=== PATIENT | male | born 1930 | race Hispanic/Latino ===

== ENCOUNTER 2018-01-08 17:54 | Emergency (ER) | payer MEDICARE ==
[2018-01-08] MEDS ORDERED: cloNIDine 0.1 MG TAB ONE (20:11)
== END 2018-01-08 21:06 | disposition home or self-care (01) ==
LOC: SCSER 17:54
DX: I10 Essential (primary) hypertension (principal); J30.9 Allergic rhinitis, unspecified; E11.9 Type 2 diabetes mellitus without complications; Z79.899 Other long term (current) drug therapy
CPT/HCPCS: 99284

== ENCOUNTER 2018-01-09 12:59 | Inpatient (IN) | payer MEDICARE ==
[~2018-01-09 12:59] MED LIST: Iopamidol 370 76% 100 ML VIAL ONE
[2018-01-09 13:39] LABS: PTT 30.2 SEC (22.9-36.1); Prothrombin Time 13.6 SEC (12.0-14.7)
[2018-01-09 13:48] LABS: ALT (SGPT) 14 U/L (8-55); AST (SGOT) 26 U/L (5-34); Albumin 2.5 g/dL (3.4-4.8); Alkaline Phosphatase 95 U/L (40-150); Anion Gap 10 mmol/L (10-20); BUN (Urea Nitrogen) 12 mg/dL (8.4-25.7); Bilirubin, Total 0.4 mg/dL (0.2-1.2); Calc. Creatinine Clearance 0 mL/min (70-130); Calcium 8.3 mg/dL (7.8-10.44); Carbon Dioxide 28 mmol/L (23-31); Chloride 107 mmol/L (98-107); Estimated GFR-MDRD 73; Globulin 3.1 g/dL (2.4-3.5); Glucose 106 mg/dL (83-110); Potassium 3.5 mmol/L (3.5-5.1); Protein, Total 5.6 g/dL (5.8-8.1); Sodium 141 mmol/L (136-145)
[2018-01-09 13:49] LABS: CKMB 1.4 ng/mL (0-6.6); Troponin I 0.012 ng/mL (< 0.028)
[2018-01-09 14:00] LABS: #Basophils 0.1 thou/uL (0.0-0.2); #Eosinphils 0.1 thou/uL (0.0-0.7); #Lymphocytes 1.1 thou/uL (1.20-3.40); #Monocytes 0.5 thou/uL (0.11-0.59); %Basophils 1.5 % (0.0-1.0); %Eosinophils 2.7 % (0.0-10.0); %Lymphocytes 23.3 % (21.0-51.0); %Monocytes 11.3 % (0.0-10.0); %Neutrophils 61.2 % (42.0-75.0); Hemoglobin 11.9 g/dL (14.0-18.0); Hypochromia SLIGHT = 6-15 cells (100X) (0-5/hpf); MDiff Complete? YES; Mean Corpuscular HGB CONC 32.7 g/dL (32.0-36.0); Mean Corpuscular Hemoglobin 32.2 pg (27.0-31.0); Mean Corpuscular Volume 98.4 fL (78.0-98.0); Mean Platelet Volume 9.5 fL (7.4-10.4); PLT Morphology Comment Appears Adequate; Platelet Count 110 thou/uL (130-400); RBC Distribution Width 13.2 % (11.5-14.5); Red Blood Cell (RBC) Count 3.69 mill/uL (4.70-6.10); White Blood Cell (WBC) Count 4.8 thou/uL (4.8-10.8)
[2018-01-09] MEDS ORDERED: Enalaprilat Dihydrate 1.25 MG/ML VIAL ONE (14:03)
--- NOTE | 2018-01-09 14:19 | CT ---
HEAD CT NONCONTRAST: Date: 01/09/18 CLINICAL HISTORY: Emergency exam. History of new onset neurologic deficits, right-sided facial droop and weakness. FINDINGS: There is a focus of hyperdensity centered at the left lentiform nucleus/posterior limb left internal capsule. A focus of susceptibility was present in this region on 08/03/15 exam, which may therefore r elate to a chronic area of parenchymal calcific density possibly related to remote hemorrhagic insult . However, the possibility of a superimposed acute parenchymal hemorrhage is not excluded on the basi s of this exam and could relate to a newly developed hypertensive hemorrhage. There is no significant midline shift. There is evidence of mild chronic ischemic disease. IMPRESSION: Focal hyperdensity of left lentiform nucleus approximating region of hemosiderin deposition/higgins art ifact on brain MRI 08/03/15, as discussed above. However, the possibility of a newly developed superi mposed nidus of parenchymal hemorrhage cannot be excluded on the basis of this exam. Continued imagin g follow-up should be obtained. These findings were discussed via telephone with ER physician, Quincy Ragland, at 1325 hours on . CODE CR.
--- NOTE | 2018-01-09 14:46 | CT ---
CTA HEAD WITH CONTRAST WITH 3D VOLUME RENDERING: Date: 01/09/18 INDICATION: New onset stroke symptoms, weakness. FINDINGS: The previously mentioned hyperdensity at the left basal ganglia is present. There is calcification of each visualized distal vertebral artery with a slight dominance of the left vertebral artery. Basila r artery is patent. 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 Bilateral MCA and BIENVENIDO are patent. No discrete intracranial aneurysm. The imaged distal, intracranial ICA demonstrate mild to moderate c alcification bilaterally, and there is calcification within the visualized right common carotid arter y. IMPRESSION: 1. Scattered vascular calcification without evidence of focal occlusion of the [place]. 2. Redemonstration of hyperdensity centered at the left lentiform nucleus/posterior limb left civil engineering intern al capsule as described on concurrent head CT, which was discussed with Dr. Ragland at the time of int erpretation. Notification of findings placed at 1400 hours on 01/09/18. CODE CR.
[2018-01-09 16:10] LABS: Bacteria/HPF Rare-Few HPF (None Seen); Bilirubin Negative (Negative); Blood, Urine Moderate (Negative); Clarity Clear (Clear); Glucose, Urine (Dipstick) Negative (Negative); Leukocyte Negative (Negative); Nitrite Negative (Negative); Protein, Urine (Dipstick) > or equal to 300 mg/dL (Neg-Trace); Squamous Epithelial None Seen HPF (0-3); Urobilinogen 0.2 mg/dL (0.2-1.0); WBC/HPF None Seen HPF (0-3)
[2018-01-09 17:02] VITALS: BMI 29.0
[2018-01-09] MEDS ORDERED: Acetaminophen 325 MG TAB PO PRN (17:19)
[2018-01-09] MEDS ORDERED: Ondansetron HCl/PF 4 MG/2 ML Vial IVP PRN (17:19)
[2018-01-09] MEDS ORDERED: hydrALAZINE 20 MG/ML VIAL SLOW IVP PRN (17:21)
[2018-01-09] MEDS ORDERED: hydrALAZINE 20 MG/ML VIAL SLOW IVP SCH (17:30)
[2018-01-09] MEDS: Labetalol HCl 100 MG/20 ML VIAL SLOW IVP PRN (18:37)
--- NOTE | 2018-01-09 21:01 | PDOC.FPRHP ---
- History of Present Illness Chief Complaint: slurred speech, right sided weakness History of Present Illness: 87 yo M with PMH of hemorrhagic CVA x4-5 presents as transfer from ED due to concern for hemorrhagic CVA. At 1230 pm family noticed acute onset of slurred speech and right facial droop in addition to right upper and lower extremity weakness. Patient denied PEREIRA, vision changes, LOC, falls at that time. At ED patient had elevated BPs in the 200s. Patient was unable to ambulate due to lower leg weakness. CT showed concern for possible hemorrhagic CVA. Pt. also complains of cough and sore throat for past 4 days. Cough productive of clear sputum, denies fevers and chills or dyspnea. Was given augmentin which he did not complete due to it causing diarrhea. ED Course: vasotec x1, hydralazine x1 - Allergies/Adverse Reactions Allergies Allergy/AdvReac Type Severity Reaction Status Date / Time No Known Allergies Allergy Verified 02/22/13 15:27 - Home Medications Medication Instructions Recorded Confirmed Type Lisinopril [Prinivil] 10 mg PO DAILY 02/22/13 01/09/18 History Amoxicillin/Potassium Clav 1 tab PO Q12HR 01/09/18 01/09/18 History Benzonatate [Tessalon] 200 mg PO TID PRN 01/09/18 01/09/18 History Ipratropium 0.06% Nasal Inhale 2 sprays EA NARE TID 01/09/18 01/09/18 History [Atrovent 0.06% Nasal [place]] Pravastatin Sodium 80 mg PO HS 01/09/18 01/09/18 History - History PMHx: HTN, HLD, possible dementia PSHx: Denies FHx:HTN, Cancer Social: Former smoker (has not smoked for over 15 years), denies etoh and drug use - Review of Systems General: denies: fever/chills Eyes: denies: vision changes ENT: reports: nasal congestion Respiratory: reports: cough, congestion. denies: shortness of breath Cardiovascular: denies: chest pain, palpitation, orthopnea Gastrointestinal: denies: nausea, vomiting, diarrhea, constipation, abdominal pain Genitourinary: denies: dysuria Skin: denies: rashes Musculoskeletal: reports: arthritis/arthralgias. denies: pain Neurological: reports: weakness. denies: syncope, seizure - Vital signs BP: [193/78] HR: [83] RR: [19] Tmax: [97.8] Pox: [95]% on [RA] Wt: [81] - Physical Exam Constitutional: NAD, awake, alert and oriented -Constitutional: mild dysarthria (different from baseline per family) HEENT: normocephalic and atraumatic, PERRLA, EOMI, conjunctiva clear Neck: supple, FROM Heart: RRR -Lungs: lower lobe rhonci, mild wheezing Abdomen: soft, no masses/distention Musculoskeletal: ROM grossly normal Neurological: no focal deficit, CN II-XII intact -Neurological: II-XII: +right lower facial droop (mild), intact sensation UE: 5/5 motor and sensation intact LE: 5/5 motor and sensation intact gait: shuffling, broad, unsteady Skin: no rash/lesions, capillary refill <2 seconds Heme/Lymphatic: no unusual bruising or bleeding Psychiatric: normal mood and affect, other -Psychiatric: comprehensible speech, but tangential repetitive speech (baseline per family). mild dysarthria FMR H&P: Results - Labs Result Diagrams: 01/10/18 03:54 01/10/18 03:54 Lab results: WBC 4.8 thou/uL (4.8-10.8) 01/09/18 13:10 Hgb 11.9 g/dL (14.0-18.0) L 01/09/18 13:10 Hct 36.3 % (42.0-52.0) L 01/09/18 13:10 MCV 98.4 fL (78.0-98.0) H 01/09/18 13:10 Plt Count 110 thou/uL (130-400) L 01/09/18 13:10 Neutrophils % 61.2 % (42.0-75.0) 01/09/18 13:10 Sodium 141 mmol/L (136-145) 01/09/18 13:10 Potassium 3.5 mmol/L (3.5-5.1) 01/09/18 13:10 Chloride 107 mmol/L (98-107) 01/09/18 13:10 Carbon Dioxide 28 mmol/L (23-31) 01/09/18 13:10 BUN 12 mg/dL (8.4-25.7) 01/09/18 13:10 Creatinine 0.98 mg/dL (0.7-1.3) 01/09/18 13:10 Glucose 106 mg/dL (83-110) 01/09/18 13:10 Calcium 8.3 mg/dL (7.8-10.44) 01/09/18 13:10 Total Bilirubin 0.4 mg/dL (0.2-1.2) 01/09/18 13:10 AST 26 U/L (5-34) 01/09/18 13:10 ALT 14 U/L (8-55) 01/09/18 13:10 Alkaline Phosphatase 95 U/L (40-150) 01/09/18 13:10 CK-MB (CK-2) 1.4 ng/mL (0-6.6) 01/09/18 13:10 Serum Total Protein 5.6 g/dL (5.8-8.1) L 01/09/18 13:10 Albumin 2.5 g/dL (3.4-4.8) L 01/09/18 13:10 Urine Ketones Negative mg/dL (Negative) 01/09/18 15:40 Urine Blood Moderate (Negative) H 01/09/18 15:40 Urine Nitrite Negative (Negative) 01/09/18 15:40 Ur Leukocyte Esterase Negative (Negative) 01/09/18 15:40 Urine RBC 4-6 HPF (0-3) 01/09/18 15:40 Urine WBC None Seen HPF (0-3) 01/09/18 15:40 Ur Squamous Epith Cells None Seen HPF (0-3) 01/09/18 15:40 Urine Bacteria Rare-Few HPF (None Seen) 01/09/18 15:40 FMR H&P: A/P - Problem List (1) Ischemic cerebrovascular accident (CVA) Current Visit: Yes Status: Acute Code(s): I63.9 - CEREBRAL INFARCTION, UNSPECIFIED (2) Cough productive of clear sputum Current Visit: Yes Status: Acute Code(s): R05 - COUGH (3) Hypertension Current Visit: Yes Status: Acute Code(s): I10 - ESSENTIAL (PRIMARY) HYPERTENSION (4) Hyperlipidemia Current Visit: Yes Status: Acute Code(s): E78.5 - HYPERLIPIDEMIA, UNSPECIFIED - Plan 87 yo M with PMH hemorrhagic CVAs admitted for ischemic CVA, stroke r/o 1. Ischemic CVA, stroke work up - ED CT scan: questionable ICH on read. Touched base with neurosurgeon who is not concerned with ICH -Will allow for permissive HTN with PRN labetalol & hydralazine for >220/>110 -Stroke work up: echo, FLP -MRI brain in AM -Neuro consult -PT/OT/ST -NPO for now 2. Productive cough -Lung with b/l lower lobe rhonci -non-hypoxic on RA, no white count, afebrile -Will order CXR to evaluate for possible PNA or other lower respiratory processes 3. HTN -see problem #1 -continue home lisinopril] 4. HLD -continue home statin 5. Prior hx of DM2 -per patient's son, currently no longer diabetic after weight loss -will recheck with A1c to risk stratify 6. Macrocytic anemia -B12, B9 7. Proteinuria; hematuria -could be 2/2 to infection or chronic diabetic nephropathy -with hematuria consider nephritic syndrome Discussed with Dr. Peña & Dr. Larose who agree with above plan FMR H&P: Upper Level - Pertinent history 87M p/w right sided weakness, right sided facial droop, slurred speech, and ataxic gait since noon today. He has been evaluated several times in the ED over the last week for uncontrolled hypertension. Family are present in the exam room and give the majority of the history. History of 4 prior CVAs with two being hemorrhagic. ASA held in ED due to hx of ICH and equivocal CT on presentation. Patient is also not a candidate for tPA due to this history. ED physician spoke with Neurosurgery who felt this was likely thromboembolic and not hemorrhagic in nature. PMH: hypertension PSH: none Allergies: NKDA Meds: lisinopril ED: Vasotec 1.25 mg - Pertinent findings Vitals: 97.8F 83 bpm 19 breaths/m 95% on RA 193/78 mmHg PE: Gen: A&Ox3 HEENT: NC/AT CV: RRR; no m/r/g Pulm: CTA-B Abd: soft; non tender to palpation; no guarding Neuro: CN II-XII intact; ataxic gait Extremities: muscle strength 5/5 on left upper and lower extremities; 4/5 on right upper and lower extremities CBC, CMP, CE, and coags essentially normal UA shows moderate blood and proteinuria CT head: shows old remnant of hemorrhagic infarct; cannot exclude small hemorrhage - Plan Date/Time: 01/09/182100 A/P: 1. CVA with right sided deficit: admit stroke/Obs with NIH scale per protocol. MRI and TTE pending. Patient is already improving- able to ambulate this evening. Permissive HTN to 220/110 mmHg with PRN Hydralazine and Labetalol. Neurology consult with PT/OT/Speech. Dysphagia screen prior to eating. 2. HTN emergency: patient only on monotherapy at home. Will continue his Lisinopril and add hydralazine and labetalol PRN for BP above 220/110 mmHg. I, Jamie Larose, have evaluated this patient and agree with findings/plan as outlined by recording studio intern resident. Pertinent changes/additions are listed here. Attending Addendum - Attending Addendum Date/Time: 01/10/18 [id number] I personally evaluated the patient and discussed the management with Dr. Larose. I agree with the History, Examination, Assessment and Plan documented above with any addition or exceptions noted below.
[2018-01-09] MEDS: Pravastatin Sodium 40 MG TAB PO SCH (21:29)
[2018-01-09] MEDS: Ipratropium Bromide 0.06% Nasal Inhaler 15ml EA NARE SCH (21:41)
[2018-01-09] MEDS ORDERED: Aspirin 325 MG TAB PO SCH (22:00)
--- NOTE | 2018-01-09 22:28 | RAD ---
PORTABLE AP CHEST X-RAY 01/09/18 HISTORY: Pneumonia. COMPARISON: 01/05/18. FINDINGS: This exam is obtained with the patient in kyphotic position and shallow depth of inspiration. Broncho vascular markings are accentuated. The cardiac silhouette is mostly obscured. No consolidation or ple ural fluid is seen. vascular calcifications seen in the thoracic aorta. IMPRESSION: Limited exam, but no acute cardiopulmonary process is identified. POS: ALBERT
[2018-01-09] MEDS: Benzonatate 100 MG CAP PO PRN (23:11)
[2018-01-10 04:43] LABS: #Basophils 0.1 thou/uL (0.0-0.2); #Eosinphils 0.1 thou/uL (0.0-0.7); #Lymphocytes 1.1 thou/uL (1.20-3.40); #Monocytes 0.4 thou/uL (0.11-0.59); #Neutrophils 2.2 thou/uL (1.40-6.50); %Basophils 1.5 % (0.0-1.0); %Eosinophils 3.6 % (0.0-10.0); %Lymphocytes 28.7 % (21.0-51.0); %Monocytes 10.2 % (0.0-10.0); Hemoglobin 11.2 g/dL (14.0-18.0); Mean Corpuscular HGB CONC 31.9 g/dL (32.0-36.0); Mean Corpuscular Hemoglobin 32.5 pg (27.0-31.0); Mean Platelet Volume 8.6 fL (7.4-10.4); Platelet Count 147 thou/uL (130-400); RBC Distribution Width 13.3 % (11.5-14.5); Red Blood Cell (RBC) Count 3.45 mill/uL (4.70-6.10)
[2018-01-10 04:52] LABS: Hemoglobin A1c 5.3 % (4.0-6.0)
[2018-01-10 05:12] LABS: Anion Gap 7 mmol/L (10-20); BUN (Urea Nitrogen) 13 mg/dL (8.4-25.7); Calc. Creatinine Clearance 66 mL/min (70-130); Calcium 7.9 mg/dL (7.8-10.44); Carbon Dioxide 25 mmol/L (23-31); Cardiac Risk 4.7 (Less than 4.5); Chloride 109 mmol/L (98-107); Cholesterol 166 mg/dl (< 200 Desired); Estimated GFR-MDRD 77; Glucose 97 mg/dL (83-110); HDL Cholesterol 35 mg/dL (>60 Neg Risk); LDL Cholesterol, Calculated 112 mg/dL; Potassium 3.2 mmol/L (3.5-5.1); Sodium 138 mmol/L (136-145); Triglycerides 96 mg/dL (Less than 150)
[2018-01-10 05:28] LABS: Folate (Folic Acid) 9.5 ng/mL (7.0-31.4)
[2018-01-10] MEDS: Lisinopril 10 MG TAB PO SCH (08:32)
[2018-01-10] MEDS ORDERED: Aspirin 325 MG TAB PO SCH (09:00)
--- NOTE | 2018-01-10 09:10 | PDOC.FM ---
- Subjective Subjective: NAEO. Patient states his symptoms have markedly improved since admission. Says gait is better and speech is better too. Still slightly difficult to understand though. No obvious facial droop. Endorses a persistent cough and sore throat as well as nasal congestion. Denies any chest pain, headache, or blurry vision. - Objective Vital Signs & Weight: Vital Signs (12 hours) Temp Pulse Resp BP BP Pulse Ox 01/10/18 08:32 204/84 H 01/10/18 08:00 97.3 F L 78 20 204/84 H 92 L 01/10/18 04:00 97.9 F 73 19 174/79 H 93 L 01/10/18 00:00 98.0 F 77 19 182/78 H 92 L Weight Weight 81.76 kg I&O: 01/09/18 01/10/18 01/11/18 06:59 06:59 06:59 Intake Total 500 Balance 500 Result Diagrams: 01/10/18 03:54 01/10/18 03:54 <Mariela Garcia - Last Filed: 01/10/18 09:49> - Objective Vital Signs & Weight: Vital Signs (12 hours) Temp Pulse Resp BP BP Pulse Ox 01/10/18 10:48 79 233/96 H 01/10/18 10:35 79 233/96 H 01/10/18 10:21 204/84 H 01/10/18 08:32 204/84 H 01/10/18 08:00 97.3 F L 78 20 204/84 H 92 L 01/10/18 04:00 97.9 F 73 19 174/79 H 93 L 01/10/18 00:00 98.0 F 77 19 182/78 H 92 L Weight Weight 81.76 kg I&O: 01/09/18 01/10/18 01/11/18 06:59 06:59 06:59 Intake Total 500 Balance 500 Result Diagrams: 01/10/18 03:54 01/10/18 03:54 <Prosper Bunch - Last Filed: 01/10/18 11:46> Phys Exam - Physical Examination Constitutional: NAD HEENT: moist MMs, oral pharynx no lesions Neck: supple, full ROM Respiratory: no wheezing, no rales, no rhonchi Cardiovascular: RRR, no significant murmur Gastrointestinal: positive bowel sounds Musculoskeletal: no edema Neurological: normal sensation, moves all 4 limbs Slightly aphasic but unaware of baseline speech LUE slightly weaker compared to right w/ boss miner strength Psychiatric: normal affect, A&O x 3 Skin: no rash, normal turgor, cap refill <2 seconds <Mariela Garcia - Last Filed: 01/10/18 09:49> Dx/Plan (1) Cough productive of clear sputum Code(s): R05 - COUGH Status: Acute (2) Hyperlipidemia Code(s): E78.5 - HYPERLIPIDEMIA, UNSPECIFIED Status: Acute (3) Hypertension Code(s): I10 - ESSENTIAL (PRIMARY) HYPERTENSION Status: Acute (4) Ischemic cerebrovascular accident (CVA) Code(s): I63.9 - CEREBRAL INFARCTION, UNSPECIFIED Status: Acute - Plan Plan: 87YOM with a PMH sigificant for multiple hemorrhagic CVAs admitted for concern for an ischemic CVA w/ right-sided facial droop and weakness. Suspected Ischemic CVA vs. TIA - Per neurosurgery no concern for ICH, said sxs likely ischemic in etiology. - Will allow for permissive HTN with PRN labetalol & hydralazine for >220/>110. - Echo & MRI brain pending for today. - FLP--> total cholesterol <200 but LDL 112. - Neurology has been consulted. - PT/OT/ST consulted as well. - NPO for now pending clearance from speech therapy. Productive cough - Satting well on RA, no white count, afebrile. - CXR showed some congestion but no focal consolidation suggestive of PNA. - Patient does endorse URI symptoms like sore throat and nasal congestion. - Will order tessalon pearls for cough and saline nasal spray for congestion. Want to avoid decongestants due to HTN. HTN - Will manage HTN as described above for the next few hours but will initiate better BP control with an additional antihypertensive agent. - Will continue home lisinopril. HLD -Aware, will continue home statin. Prior hx of DM2 - Per patient's son, patient is no longer diabetic 2/2 weight loss. - A1c 5.3 which is WNLs. No need to initiate antihyperglycemic therapy. Macrocytic anemia - B12 & folate WNLs. - Can be worked up further on outpatient basis. Proteinuria; hematuria - BUN/Cr WNLs but eGFR 68%. - Could be result of previously uncontrolled diabetic nephropathy. Could obtain a urine microalbumin:Cr ratio to assess for this. - Will likely need further workup as an outpatient with PCP. <Mariela Garcia - Last Filed: 01/10/18 09:49> Attending Addendum - Attending Addendum Date/Time: 01/10/18 0963 I personally evaluated the patient and discussed the management with Dr. Garcia. I agree with the History, Examination, Assessment and Plan documented above with any addition or exceptions noted below. Patient with history of recurrent hemorrhagic CVA here for new abrupt neurological deficit thought due to ischemic CVA. He is undergoing MRI today. BP highly elevated, and we are now out of the permissive HTN range. Will begin anti-HTN therapy and work to decrease BP to safe range. Consult Neuro and therapy services. NSGY spoken to by MAGDALENA who felt this was not recurrent hemorrhage. Further clarify with MRI today. Currently on ASA but will withhold adding Plavix until discussion with neurology due to history of ICH. <Prosper Bunch - Last Filed: 01/10/18 11:46>
[2018-01-10] MEDS: Labetalol HCl 100 MG/20 ML VIAL SLOW IVP PRN (10:21)
[2018-01-10] MEDS: Ipratropium Bromide 0.06% Nasal Inhaler 15ml EA NARE SCH ×3 (10:31→21:23)
[2018-01-10] MEDS: Benzonatate 100 MG CAP PO PRN ×2 (10:38→19:39)
[2018-01-10] MEDS ORDERED: NIFEdipine XL 60 MG TAB PO SCH (10:45)
[2018-01-10] MEDS ORDERED: Labetalol HCl 100 MG/20 ML VIAL SLOW IVP PRN (12:15)
[2018-01-10] MEDS ORDERED: hydrALAZINE 20 MG/ML VIAL SLOW IVP PRN (12:15)
--- NOTE | 2018-01-10 12:18 | PDOC.EVN ---
Event Note - Event Note Event Note: Discussed case with Sean who has spoken with Dr. Lebron. Per Dr. Lebron, preliminary MRI read suggests acute intracerebral hemorrhage. Recommended keeping BPs <180. Parameters changed on antihypertensives to be given for SBP> 180. Nifedipine has been added. Will continue to monitor.
--- NOTE | 2018-01-10 13:43 | MRI ---
NONCONTRAST ENHANCED MRI BRAIN: 01/10/2018 COMPARISON: Previous MRI brain from 08/03/[address] brain from 01/09/2018. FINDINGS: Multiplanar, multisequence, noncontrast enhanced MR images of the brain demonstrate an increasing are a of hemorrhage in the left periventricular white matter, extending into the left posterior aspect of the basal ganglion and the lateral aspect of the left thalamus. These areas have increased in size. An area of abnormal density, seen on CT, represents acute blood. This area along the posterior lef t basal ganglion region has increased in size. Previously this area represented a small subcentimete r area of old hemosiderin and hemorrhage. There is now increased acute hemorrhage with enlargement o f this area of signal abnormality, now measuring approximately 6 x 8.6 mm. Additional areas of hemor rhage have also developed in the right thalamus, which is 3 to 4 mm in diameter. In addition, a righ t paracentral pontine area of hemorrhage is also present, that was not seen on the patient's previous MRI, from July 2015. IMPRESSION: 1. Small acute left posterior basal ganglia and lateral thalamic area of acute hemorrhage. 2. There has been interval development of additional areas of hemorrhage in the right thalamus and i n the right paracentral pontomedullary junction. 3. No evidence of areas of diffusion restriction seen to suggest acute strokes. POS: MARY BETH
[2018-01-10] MEDS: Pravastatin Sodium 40 MG TAB PO SCH (21:22)
[2018-01-11 05:11] LABS: #Basophils 0.1 thou/uL (0.0-0.2); #Eosinphils 0.2 thou/uL (0.0-0.7); #Lymphocytes 1.1 thou/uL (1.20-3.40); #Monocytes 0.6 thou/uL (0.11-0.59); #Neutrophils 3.7 thou/uL (1.40-6.50); %Eosinophils 3.5 % (0.0-10.0); %Lymphocytes 19.6 % (21.0-51.0); %Monocytes 9.9 % (0.0-10.0); %Neutrophils 66.1 % (42.0-75.0); Hemoglobin 11.5 g/dL (14.0-18.0); Mean Corpuscular HGB CONC 31.8 g/dL (32.0-36.0); Mean Corpuscular Hemoglobin 32.3 pg (27.0-31.0); Mean Platelet Volume 8.4 fL (7.4-10.4); Platelet Count 160 thou/uL (130-400); RBC Distribution Width 13.2 % (11.5-14.5); Red Blood Cell (RBC) Count 3.56 mill/uL (4.70-6.10); White Blood Cell (WBC) Count 5.6 thou/uL (4.8-10.8)
[2018-01-11 05:32] LABS: Anion Gap 8 mmol/L (10-20); BUN (Urea Nitrogen) 15 mg/dL (8.4-25.7); Calc. Creatinine Clearance 65 mL/min (70-130); Calcium 8.1 mg/dL (7.8-10.44); Carbon Dioxide 26 mmol/L (23-31); Chloride 109 mmol/L (98-107); Estimated GFR-MDRD 76; Glucose 109 mg/dL (83-110); Potassium 3.2 mmol/L (3.5-5.1); Sodium 140 mmol/L (136-145)
--- NOTE | 2018-01-11 05:58 | PDOC.FM ---
- Subjective Subjective: NAEO. Patient states he does not feel well today. Says he did not sleep well as he was up coughing all night. Denies any fever/chills or facial pain and says cough is productive of clear sputum occasionally. Also endorses a sore throat and congestion. Says speech and gait are still improved. Denies any chest pain, SOB, or headache. - Objective MAR Reviewed: Yes Vital Signs & Weight: Vital Signs (12 hours) Temp Pulse Resp BP Pulse Ox 01/11/18 04:00 98.0 F 79 20 116/60 94 L 01/11/18 00:00 98.9 F 82 16 153/68 H 92 L 01/10/18 20:00 98.9 F 75 20 168/70 H 94 L Weight Weight 81.76 kg I&O: 01/09/18 01/10/18 01/11/18 06:59 06:59 06:59 Intake Total 500 Balance 500 Result Diagrams: 01/11/18 04:24 01/11/18 04:24 Phys Exam - Physical Examination Constitutional: NAD HEENT: moist MMs, sclera anicteric Neck: supple, full ROM Respiratory: no rales, no rhonchi wheezing in upper airway on exam Cardiovascular: RRR, no significant murmur Gastrointestinal: no distention, positive bowel sounds Musculoskeletal: no edema Neurological: non-focal, normal sensation, moves all 4 limbs dysarthria still present Psychiatric: normal affect, A&O x 3 Skin: no rash, normal turgor, cap refill <2 seconds Dx/Plan (1) Cough productive of clear sputum Code(s): R05 - COUGH Status: Acute (2) Hyperlipidemia Code(s): E78.5 - HYPERLIPIDEMIA, UNSPECIFIED Status: Acute (3) Hypertension Code(s): I10 - ESSENTIAL (PRIMARY) HYPERTENSION Status: Acute (4) Ischemic cerebrovascular accident (CVA) Code(s): I63.9 - CEREBRAL INFARCTION, UNSPECIFIED Status: Acute - Plan Plan: 87YOM with a PMH significant for multiple hemorrhagic CVAs admitted w/ a CC of right-sided facial droop and weakness who has found to have suffered another hemorrhagic CVA. Hemorrhagic CVA - Acute hemorrhagic CVA in posterior basal ganglia and lateral thalamic area confirmed via MRI yesterday - Will continue PRN labetalol & hydralazine as well as home lisinopril and nifedipine at 60mg QD to keep patient's SBP <180 per neurology recs. - Will continue ASA and statin therapy. - Echo pending. - FLP--> total cholesterol <200 but LDL 112. - Neurology on board, appreciate recs. - PT/OT/ST on board as well. - PT eval yesterday recommended home w/ HH or rehab with PT 1-2hours M- and Monday or Monday. Patient would most likely benefit greatest from rehab. Will order rehab screen today to eval if patient is willing to or qualifies for inpatient rehab for PT. - Cleared by speech to eat yesterday. HTN - Will manage HTN as described above per neuro recs. - Will continue current BP regimen for now as patient did not require any PRNs after adding nifedipine yesterday. Hypokalemia - K 3.2 this AM. - Will replace w/ 40mEq PO and recheck tomorrow. Productive cough - Satting well on RA, no white count, afebrile. - CXR showed some congestion but no focal consolidation suggestive of PNA. - Patient does endorse URI symptoms like sore throat and nasal congestion. - Will continue tessalon pearls and add mucinex BID for cough/congestion and add afrin for congestion. HLD - Aware, will continue home statin. Prior hx of DM2 - Per patient's son, patient is no longer diabetic 2/2 weight loss. - A1c 5.3 which is WNLs. No need to initiate antihyperglycemic therapy. Macrocytic anemia - B12 & folate WNLs. - Can be worked up further on outpatient basis. Proteinuria; hematuria - BUN/Cr WNLs but eGFR 68%. - Could be result of previously uncontrolled diabetic nephropathy. Could obtain a urine microalbumin:Cr ratio to assess for this. - Will likely need further workup as an outpatient with PCP.
[2018-01-11] MEDS: Lisinopril 10 MG TAB PO SCH (08:01)
[2018-01-11] MEDS: Ipratropium Bromide 0.06% Nasal Inhaler 15ml EA NARE SCH ×2 (08:01→15:27)
[2018-01-11] MEDS: Benzonatate 100 MG CAP PO PRN (08:07)
[2018-01-11] MEDS ORDERED: NIFEdipine XL 60 MG TAB PO SCH ×2 (09:00→10:34)
[2018-01-11] MEDS ORDERED: guaiFENesin/DM ER PO SCH (09:00)
--- NOTE | 2018-01-11 11:36 | PDOC.EVN ---
Attending Addendum - Attending Addendum Date/Time: 01/11/18 4077 I personally evaluated the patient and discussed the management with Dr. Garcia. I agree with the History, Examination, Assessment and Plan documented in her progress note with any addition or exceptions noted below. Patient doing well today. Awaiting neuro consult. BP much improved on Procardia and will continue that regimen. Currently on ASA 81mg. Dispo planning in progress for possible SNF versus home with therapy services. Nearing medically stable for discharge.
[2018-01-11] MEDS ORDERED: Potassium Chloride 20 MEQ TAB PO SCH (12:00)
[2018-01-11 15:52] VITALS: TEMP 98.2
[2018-01-11 15:55] VITALS: BP 129/59
--- NOTE | 2018-01-11 23:26 | CON ---
DATE OF CONSULTATION: 01/11/2018 IMPRESSION: 1. Hemorrhagic stroke and left mid parietal region resulting in transient right-sided weakness. 2. History of 4 prior strokes, two of which may have been hemorrhagic. 3. Hypertension. PLAN: 1. Blood pressure management. 2. No antiplatelet therapy given the history. Mr. Tijerina is an 87-year-old man who actually is still working. 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 He apparently was in the bath room and developed slurred speech and right-sided weakness. He was brought into the emergency room f or evaluation. CT scan showed evidence of small intracerebral hemorrhage in the left mid parietal re gion and basal ganglia area. His right-sided weakness has improved quite a bit. His slurred speech has has not improved quite as much. He did pass a swallowing study. His blood pressures have been q uite labile. PAST MEDICAL HISTORY: As listed above. ALLERGIES: None reported. SOCIAL HISTORY: No tobacco use. FAMILY HISTORY: Noncontributory. REVIEW OF SYSTEMS: No complaint of headache, nausea, vomiting, vertigo, chest pain, shortness of felipe ath. PHYSICAL EXAMINATION: GENERAL: He is a well-nourished elderly gentleman in no acute distress. VITAL SIGNS: Reviewed. HEENT: Pupils equal and reactive. Conjunctivae clear. Oropharynx clear. EXTREMITIES: No cyanosis, clubbing or edema. NEUROLOGIC: He was alert and cooperative. His speech was fluent but dysarthric. Cranial nerve exam showed flattening of the right nasal labial fold. Motor exam showed symmetric strength without fix or drift. He can walk independently. He has equal sensation. Plantar responses were mute. No abno rmal movements were seen. SUMMARY: Elderly gentleman with recurrent hemorrhagic stroke. His blood pressure appears to be the major issue in play. I would not suggest antiplatelet therapy given his past history of hemorrhages. Blood pressure management would appear to be the only option we have at this point.
--- NOTE | 2018-01-13 00:31 | DIS ---
DATE OF ADMISSION: 01/09/2018 DATE OF DISCHARGE: 01/11/2018 RESIDENT: Mariela Garcia M.D. ADMITTING ATTENDING: Dr. Rhys Fong. DISCHARGE ATTENDING: Dr. Prosper Bunch. DISCHARGE ATTENDING: Prosper Bunch. CONSULTATIONS: Neurology, Dr. Ayad Lebron. PROCEDURES: 1. Brain CT significant for focal hyperdensity of the left lentiform nucleus, approximating region o f hemosiderin deposition, having more effect on brain MRI on 08/03/2015; however, the possibility of a newly developed superimposed hemorrhage cannot be excluded on the basis of this exam. 2. CT [place] with and without contrast significant for scattered vascular calcification wi thout evidence of focal occlusion of the [place] and redemonstration of hyperdensity centere d on the left lentiform nucleus/posterior with internal capsule as described on current head CT . 3. Chest x-ray which shows no acute cardiopulmonary process. 4. Brain MRI significant for a small acute left posterior basal ganglia on lateral thalamic area of acute hemorrhage. PRIMARY DIAGNOSES: 1. Hemorrhagic cerebrovascular accident. 2. Cough productive of clear sputum. SECONDARY DIAGNOSES: 1. Hypertension. 2. Hyperlipidemia. 3. Dementia. DISCHARGE MEDICATIONS: 1. Acetaminophen 650 mg p.o. q.4 hours p.r.n. for pain. 2. Tessalon Perles 200 mg p.o. t.i.d. for cough. 3. Mucinex DM 600 mg/30 mg 2 tabs p.o. q.12 h. 4. Lisinopril 10 mg p.o. daily. 5. Nifedipine 60 mg p.o. daily. 6. Pravastatin 80 mg p.o. at bedtime. DISCONTINUED MEDICATIONS: None. HOSPITAL COURSE: The patient is an 87-year-old gentleman with a past medical history signif icant for multiple hemorrhagic CVAs, who is transferred from an outside Emergency Department due to c oncern for a possible recurrent hemorrhagic CVA shown on head CT. At approximately 12:30 p.m., famil y reported that the patient had sudden onset of slurred speech with associated right facial droop as well as right upper and lower extremity weakness. He therefore presented to the [facility] Department for medical evaluation and on presentation had an elevated systolic blood pressure a s high as the 200s. He was subsequently transferred to [facility] where he cont inued to be extremely hypertensive with blood pressures ranging anywhere from 187-213 systolic in the emergency department. However, all other vitals were noted to be within normal limits. Initial blo od work was remarkable only for macrocytic anemia. The patient did have a CTA of the [place], which did not show any ischemic occlusion, but did show a persistent possible hemorrhagic area. Za sawyer also had a chest x-ray which showed no acute cardiopulmonary process. He was therefore admitt ed for close monitoring overnight with plans to obtain an MRI the following morning to evaluate for a n ischemic versus recurrent hemorrhagic CVA. The patient remained stable overnight and the following morning, an MRI was obtained which was significant for yet another acute hemorrhagic CVA in the left posterior basal ganglia and lateral thalamic area. The patient was noted to have persistently eleva an blood pressures upwards of 180 following morning as well. He was therefore started on 60 mg of p .o., nifedipine, in addition to his home 10 mg lisinopril dose with p.r.n. labetalol and hydralazine if his pressures did exceed 180 systolic. After the addition of nifedipine; however, the patient's b lood pressure stabilized and remained well below 180 systolic remainder of the following day. Physic al therapy also came and evaluated the patient as well as speech and occupational therapy and it was recommended that the patient have more intensive daily physical therapy either at rehabilitation or [facility]. After an extensive discussion with the patient's son and other children, it was decided by the family that the patient be discharged to a long term facility in [place] in order to receive adequat e physical therapy to get him back to his baseline function. In addition, on the date of discharge, the patient was seen and evaluated by Neurology, Dr. Ayad tucker, who recommended that the patient continue with aggressive blood pressure management in order to prevent recurrent hemorrhages. He recommended avoiding antiplatelet therapy at this point given his history of multiple hemorrhagic CVAs. Thus, after being cleared by Neurology and being approved for admission to a long term facility in [place], the patient was discharged on his new blood pres sure regimen including nifedipine and lisinopril in stable condition. DISPOSITION: Stable. DISCHARGE INSTRUCTIONS: 1. Location: senior care facility. 2. Diet: Heart healthy diet, low sodium. 3. Activity: As tolerated. 4. Followup: The patient was instructed to follow up with his primary care provider, Dr. Aftab young within 1 week of discharge.
== END 2018-01-11 20:40 | disposition swing bed (61) | DRG 65 ==
LOC: SCSER 12:59 → ERHOLD 15:15 → 2SE 16:22
PROVIDERS: ADMIT Student in an Organized Health Care Education/Training Program; ATTEND Student in an Organized Health Care Education/Training Program
PROC: 3E0234Z Introduction of Serum, Toxoid and Vaccine into Muscle, Percutaneous Approach (ICD-10-PCS; principal; 2018-01-10)
DX: I61.9 Nontraumatic intracerebral hemorrhage, unspecified (principal); G81.91 Hemiplegia, unspecified affecting right dominant side; I10 Essential (primary) hypertension; I25.2 Old myocardial infarction; R47.81 Slurred speech; E78.5 Hyperlipidemia, unspecified; E87.6 Hypokalemia; R29.810 Facial weakness; Z87.891 Personal history of nicotine dependence; R29.704 NIHSS score 4; Z23 Encounter for immunization
CPT/HCPCS: 36415; 70450; 70496; 70551; 71045; 80048; 80061; 80076; 81003; 81015; 82553; 82607; 82746; 83036; 84443; 84484; 85025; 85610; 85730; 90471; 90662; 93005; 94760; 96374; 99284; G0008; G8978-GP-CJ; G8979-GP-CI; G8987-GO-CJ; G8988-GO-CI; G8999-GN-CK; G9186-GN-CJ; J0360

== ENCOUNTER 2018-02-05 02:30 | Emergency (ER) | payer MEDICARE ==
[2018-02-05 03:27] LABS: Anion Gap 15 mmol/L (10-20); BUN (Urea Nitrogen) 14 mg/dL (8.4-25.7); Calc. Creatinine Clearance 0 mL/min (70-130); Calcium 8.6 mg/dL (7.8-10.44); Carbon Dioxide 22 mmol/L (23-31); Chloride 110 mmol/L (98-107); Estimated GFR-MDRD 62; Glucose 102 mg/dL (83-110); Potassium 3.6 mmol/L (3.5-5.1); Sodium 143 mmol/L (136-145)
--- NOTE | 2018-02-05 07:44 | ULT ---
ULTRASOUND WITH DOPPLER DUPLEX VENOUS RIGHT LOWER EXTREMITY: CPT: 44149 ICD-10-PCS: B54D INDICATIONS: Pain. Edema. TECHNIQUE: Color-flow Doppler, spectral wave-form analysis of pulsed Doppler, and diallo-scale imaging with compre ssion and augmentation were used to evaluate the bilateral common femoral, femoral, popliteal, loftsman/woman ior tibial, and superficial femoral veins, and the proximal portions of the profunda femoral and grea ter saphenous, veins. FINDINGS: There is no evidence of abnormal increased intraluminal echogenicity of the deep venous system of the right lower extremity. There is appropriate compressibility and flow. Incidental note of atherosclerotic plaque of the popliteal artery. IMPRESSION: 1. No deep venous thrombosis. 2. Incidental note of peripheral vascular disease within the region of the popliteal artery. Recomm end clinical correlation. POS: [facility]
== END 2018-02-05 04:40 | disposition home or self-care (01) ==
LOC: SCSER 02:30
DX: R25.2 Cramp and spasm (principal); I10 Essential (primary) hypertension; G30.9 Alzheimer's disease, unspecified; F02.80 Dementia in other diseases classified elsewhere, unspecified severity, without behavioral disturbance, psychotic disturbance, mood disturbance, and anxiety; Z79.899 Other long term (current) drug therapy
CPT/HCPCS: 80048

== ENCOUNTER 2018-03-10 04:28 | Inpatient (IN) | payer MEDICARE ==
[2018-03-10] MEDS ORDERED: Ciprofloxacin Lactate/D5W 400 mg/200 ml Premix ONE (05:16)
[2018-03-10] MEDS ORDERED: Ondansetron PF 4 MG/2 ML Vial ONE (05:16)
[2018-03-10] MEDS ORDERED: metroNIDAZOLE 500 MG/100 ML BAG ONE (05:16)
[2018-03-10 05:20] LABS: #Basophils 0.1 thou/uL (0.0-0.2); #Lymphocytes 0.5 thou/uL (1.20-3.40); #Monocytes 0.6 thou/uL (0.11-0.59); #Neutrophils 13.3 thou/uL (1.40-6.50); %Basophils 0.7 % (0.0-1.0); %Lymphocytes 3.5 % (21.0-51.0); %Monocytes 3.8 % (0.0-10.0); %Neutrophils 91.9 % (42.0-75.0); Hemoglobin 11.4 g/dL (14.0-18.0); Mean Corpuscular HGB CONC 31.9 g/dL (32.0-36.0); Mean Corpuscular Hemoglobin 31.8 pg (27.0-31.0); Mean Corpuscular Volume 99.6 fL (78.0-98.0); Platelet Count 141 thou/uL (130-400); RBC Distribution Width 13.5 % (11.5-14.5); Red Blood Cell (RBC) Count 3.58 mill/uL (4.70-6.10); White Blood Cell (WBC) Count 14.5 thou/uL (4.8-10.8)
[2018-03-10 05:33] LABS: ALT (SGPT) 19 U/L (8-55); AST (SGOT) 38 U/L (5-34); Alkaline Phosphatase 113 U/L (40-150); Anion Gap 27 mmol/L (10-20); BUN (Urea Nitrogen) 23 mg/dL (8.4-25.7); Bilirubin, Total 0.6 mg/dL (0.2-1.2); Calc. Creatinine Clearance 0 mL/min (70-130); Calcium 8.5 mg/dL (7.8-10.44); Carbon Dioxide 17 mmol/L (23-31); Chloride 102 mmol/L (98-107); Estimated GFR-MDRD 33; Globulin 3.7 g/dL (2.4-3.5); Glucose 153 mg/dL (83-110); Protein, Total 6.7 g/dL (5.8-8.1); Sodium 143 mmol/L (136-145)
[2018-03-10 05:34] LABS: Potassium 2.7 mmol/L (3.5-5.1)
[2018-03-10] MEDS ORDERED: Ondansetron PF 4 MG/2 ML Vial IVP PRN (06:00)
[2018-03-10] MEDS ORDERED: Ondansetron ODT 4 MG TAB SL PRN (06:00)
[2018-03-10] MEDS ORDERED: Potassium Chloride 20 MEQ/100 ML PREMIX BAG ONE ×2 (06:23→06:25)
[2018-03-10] MEDS ORDERED: Piperacillin/Tazobactam 3.375 GM VIAL ONE (06:54)
[2018-03-10] MEDS ORDERED: Sodium Chloride 0.9% 100 ML ONE (06:55)
[2018-03-10 08:55] LABS: Lactic Acid 7.7 mmol/L (0.5-2.2)
[2018-03-10 10:19] VITALS: BMI 29.7
--- NOTE | 2018-03-10 10:57 | CT ---
PRELIMINARY REPORT/[facility]/EMERGENTY AFTER-HOURS PROCEDURE Addendum created by Ricco Chappell MD on 03/10/2018 8:24 AM Central Time ([place] & [place]) THIS REPORT CONTAINS FINDINGS THAT MAY BE CRITICAL TO PATIENT CARE.: The findings were discussed via telephone conference with Dr. Alba at 03/10/2018 8:24 AM [employer]. Initial Report created on 03/10/2018 7:38 AM Central Time ([place] & [place]) CT Abdomen and Pelvis Without Contrast EXAM DATE/TIME: 03/10/2018 5:55 AM CLINICAL HISTORY: 87 years old, male; Pain and signs and symptoms; Bloating and constipation and nausea and vomiting; A bdominal pain; Generalized; Patient HX: Abd pain, n/v/d, elevated creat and lactic acid TECHNIQUE: Axial computed tomography images of the abdomen and pelvis without contrast. All CT scans at this facility use at least one of these dose optimization techniques: automated expos ure control; mA and/or kV adjustment per patient size (includes targeted exams where dose is matched to clinical indication); or iterative reconstruction. Coronal reformatted images were created and rev iewed. COMPARISON: No relevant prior studies available. FINDINGS: Lower thorax: Moderate pulmonary venous congestion is seen in both lung bases. The heart size is norm al however. Severe coronary artery calcification is present. There is a small 4.1 mm solid intrapulmonary nodule present in the right middle lobe on image 3 of series 2. ABDOMEN: Liver: Normal. No mass. Gallbladder and bile ducts: Prior cholecystectomy. Pancreas: Normal. No ductal dilation. Spleen: Normal. No splenomegaly. Adrenals: Normal. No mass. Kidneys and ureters: A prominent extrarenal pelvis is seen in the left kidney. No evidence definite o bstructive uropathy. No renal tract calculi seen. Stomach and bowel: Slightly excessive fluid is seen throughout the small bowel together with liquid s tool distending the proximal large bowel suggestive of an enteritis with a diarrheal component versus an enterocolitis. Pneumatosis in the mid-descending colonic segment of the large bowel on images 35 t hrough 49 of series 2 could be present, suspicious for possible large bowel ischemia in this region. Severe atherosclerotic calcific plaque disease is seen in the origins of the celiac axis and both mesenteric arteries as well as the renal arteries bilaterally. A CT angiogram of the abdomen and pelv is might be further diagnostic value, if this can be performed. Appendix: No evidence of appendicitis. PELVIS: Bladder: Unremarkable as visualized. Reproductive: The prostate gland is enlarged measuring 5.1 cm in transverse diameter. ABDOMEN and PELVIS: Intraperitoneal space: Normal. No free air. No significant fluid collection. Bones/joints: No acute fracture. No dislocation. Soft tissues: Unremarkable. Vasculature: See Stomach And Bowel Finding. Lymph nodes: Normal. No enlarged lymph nodes. IMPRESSION: 1. Slightly excessive fluid is seen throughout the small bowel together with liquid stool distending the proximal large bowel suggestive of an enteritis with a diarrheal component versus an enterocoliti s. Pneumatosis in the mid-descending colonic segment of the large bowel on images 35 through 49 of serie s 2 could be present, suspicious for possible large bowel ischemia in this region. Severe atheroscler otic calcific plaque disease is seen in the origins of the celiac axis and both mesenteric arteries as well as the renal arteries bilaterally. A CT angiogram of the abdomen and pelvis might be further diagnostic value, if this can be performed. 2. Prior cholecystectomy. 3. A prominent extrarenal pelvis is seen in the left kidney. No evidence definite obstructive uropath y. No renal tract calculi seen. 4. Moderate pulmonary venous congestion is seen in both lung bases. The heart size is normal however. Severe coronary artery calcification is present. 5. There is a small 4.1 mm solid intrapulmonary nodule present in the right middle lobe on image 3 of series 2. The [employer] ACR White Paper guidelines (MacMahon, et al. Radiology 2017; 284(1):228-43) suggest the following. For low-risk patients, no follow-up is necessar y. For high-risk patients (smoking history or other known risk factors) an optional chest CT at 12 mo nths could be performed. 6. The prostate gland is enlarged measuring 5.1 cm in transverse diameter. Thank you for allowing us to participate in the care of your patient. Dictated and Authenticated by: Ricco Chappell MD 03/10/2018 7:38 AM Central Time ([place] & [place]) FINAL REPORT CT ABDOMEN AND PELVIS WITHOUT CONTRAST: I agree with the preliminary report given by Dr. Ricco Chappell of [facility]. The findings were discussed over the telephone with Miladis Tolliver RN, in the emergency room, at 9:59 a.m. CODE CR POS: [facility]
[2018-03-10] MEDS: Sodium Chloride 0.9% 1,000 ML IV SCH ×2 (11:32→12:49)
[2018-03-10] MEDS ORDERED: Lactated Ringer's 1,000 ML IV SCH (12:00)
[2018-03-10] MEDS ORDERED: Piperacillin/Tazobactam 3.375 GM in Sodium Chloride 0.9% 100 ML IVPB SCH (12:00)
[2018-03-10] MEDS: metroNIDAZOLE 500 MG in Premix Bag 1 BAG IVPB SCH ×2 (12:16→18:23)
--- NOTE | 2018-03-10 12:51 | PDOC.FPRHP ---
- History of Present Illness Chief Complaint: constipation History of Present Illness: Pt presents as a direct transfer from [facility] ER. Pt complains of 2 week hx of constipation. On CT at [facility] ER pt was found to have fecal impaction and colonic obstruction and was SIRS positive. There is also concern for bowel wall ischemia. Pt also complains of some associated weakness. ED Course: CT abdomen as listed in HPI - Allergies/Adverse Reactions Allergies Allergy/AdvReac Type Severity Reaction Status Date / Time No Known Allergies Allergy Verified 02/22/13 15:27 - Home Medications Medication Instructions Recorded Confirmed Type Pravastatin Sodium 80 mg PO HS #30 tablet 01/11/18 03/10/18 Rx Cilostazol 50 mg PO BID 03/10/18 03/10/18 History Donepezil HCl 10 mg PO HS 03/10/18 03/10/18 History Furosemide 20 mg PO DAILY 03/10/18 03/10/18 History Lisinopril [Zestril] 20 mg PO 1200 03/10/18 03/10/18 History NIFEdipine [Procardia XL] 60 mg PO 1200 03/10/18 03/10/18 History - History PMHx: dementia, htn, hld, hx of cva, pvd, insomnia PSHx: unspecified penile surgery FHx: cancer (unspecified), CAD Social: denies x3 - Review of Systems General: reports: fatigue. denies: fever/chills Eyes: denies: eye pain, vision changes ENT: denies: nasal congestion, rhinorrhea Respiratory: denies: cough, congestion Cardiovascular: denies: chest pain, palpitation Gastrointestinal: reports: diarrhea, constipation, abdominal pain Genitourinary: denies: incontinence, dysuria Skin: denies: rashes, lesions Musculoskeletal: denies: pain, tenderness Neurological: denies: syncope, seizure Psychological: reports: anxiety. denies: depression - Vital signs BP: [151/54] HR: [88] RR: [16] Tmax: [99.6] Pox: [96]% on [ra] Wt: [78kg] - Physical Exam Constitutional: awake, alert and oriented, well developed HEENT: normocephalic and atraumatic, EOMI, grossly normal vision, grossly normal hearing Neck: supple, trachea midline Chest: no-tender to palpation Heart: normal S1/S2, other (tachycardic) Lungs: CTAB, no wheezing Abdomen: soft, other (ttp difusely) Musculoskeletal: normal structure, normal tone Neurological: no focal deficit, normal sensation Skin: no rash/lesions, good turgor Heme/Lymphatic: no unusual bruising or bleeding, no purpura Psychiatric: intact recent and remote memory FMR H&P: Results - Labs Result Diagrams: 03/10/18 05:05 03/10/18 15:59 Lab results: WBC 14.5 thou/uL (4.8-10.8) H 03/10/18 05:05 Hgb 11.4 g/dL (14.0-18.0) L 03/10/18 05:05 Hct 35.7 % (42.0-52.0) L 03/10/18 05:05 MCV 99.6 fL (78.0-98.0) H 03/10/18 05:05 Plt Count 141 thou/uL (130-400) 03/10/18 05:05 Neutrophils % 91.9 % (42.0-75.0) H 03/10/18 05:05 Sodium 143 mmol/L (136-145) 03/10/18 05:05 Potassium 2.7 mmol/L (3.5-5.1) L* 03/10/18 05:05 Chloride 102 mmol/L (98-107) 03/10/18 05:05 Carbon Dioxide 17 mmol/L (23-31) L 03/10/18 05:05 BUN 23 mg/dL (8.4-25.7) 03/10/18 05:05 Creatinine 1.94 mg/dL (0.7-1.3) H 03/10/18 05:05 Glucose 153 mg/dL (83-110) H 03/10/18 05:05 Lactic Acid 6.9 mmol/L (0.5-2.2) H* 03/10/18 11:00 Calcium 8.5 mg/dL (7.8-10.44) 03/10/18 05:05 Total Bilirubin 0.6 mg/dL (0.2-1.2) 03/10/18 05:05 AST 38 U/L (5-34) H 03/10/18 05:05 ALT 19 U/L (8-55) 03/10/18 05:05 Alkaline Phosphatase 113 U/L (40-150) 03/10/18 05:05 Serum Total Protein 6.7 g/dL (5.8-8.1) 03/10/18 05:05 Albumin 3.0 g/dL (3.4-4.8) L 03/10/18 05:05 FMR H&P: A/P - Problem List (1) Fecal impaction in rectum Current Visit: Yes Status: Acute Code(s): K56.41 - FECAL IMPACTION (2) Colitis Current Visit: Yes Status: Acute Code(s): K52.9 - NONINFECTIVE GASTROENTERITIS AND COLITIS, UNSPECIFIED (3) Sepsis Current Visit: Yes Status: Acute Code(s): A41.9 - SEPSIS, UNSPECIFIED ORGANISM (4) Hypokalemia Current Visit: Yes Status: Acute Code(s): E87.6 - HYPOKALEMIA (5) Lactic acid acidosis Current Visit: Yes Status: Acute Code(s): E87.2 - ACIDOSIS (6) Penile abnormality Current Visit: Yes Status: Acute Code(s): N48.9 - DISORDER OF PENIS, UNSPECIFIED (7) Diabetes Current Visit: Yes Status: Acute Code(s): E11.9 - TYPE 2 DIABETES MELLITUS WITHOUT COMPLICATIONS (8) Hypertension Current Visit: No Status: Acute Code(s): I10 - ESSENTIAL (PRIMARY) HYPERTENSION - Plan severe sepsis for presumed infection, enteritis vs enterocolitis vs mesenteric ischemia A- CT abdomen concerning for colon wall ischemia as well as showing fecal impaction with colon distention. Pt meets sirs criteria on presentation. he has received 3L NS. 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 creatinine clearance 30 P- will renally dose medications HTN, HLD, DM -continue home medications Code: full FMR H&P: Upper Level - Pertinent history 87 yo male here for nausea, abdominal pain. Direct transfer from [facility] ER. History of HTN, HLD, DM, brain aneurysm x2, dementia, stroke 2 months ago with residual right sided weakness. Patient has been having constipation until today and has been passing a small amount of watery stool in the ER. Lives at home with In ER patient given zosyn, Cipro, flagyl, NS 1L x2 - Pertinent findings 137/53 HR: 102 RR: 20 97.6 CTabd: excessive fluid in small bowel with distention suggestive of enteritis vs enterocolitis; severe atherosclerotic calcific plaque disease is seen in the origins of the celiac axis and both mesenteric arteries as well as the renal arteries bilaterally (CTA of the abdomen and pelvis might be of value) All labs reviewed, significant below Na: 143 Cl: 102 K: 2.7 Cr: 1.94 WBC: 14.5 Neutrophils: 91.9 H/H: 11.4/35.7 Lactate: 12.3 - Plan Date/Time: 03/10/18 1251 IValentin DO, have evaluated this patient and agree with findings/plan as outlined by record label internship resident. Pertinent changes/additions are listed here. #severe sepsis for presumed infection, enteritis vs enterocolitis vs mesenteric ischemia -consult GI, recs greatly appreciated -he has received 3L NS, will continue with 200ml LR w/ K -blood cultures pending -patient given Cipro, flagyl, zosyn; will continue with flagyl and zosyn for now -patient is awake and able to give history, but we would like to keep a close eye on him with admission to [facility]MC[facility] #fecal impaction -will disimpact #anion gap lactic acidosis -see above -continue to trend values, values are trending down, but still elevated -fluids, abx #hypokalemia -replace through IV fluids #KATT -s/p 3L NS, receiving 200ml/hr LR -creatinine clearance 30; will renally dose medications #HTN, HLD, DM -continue home medications Addendum - Attending - Attending Attestation Date/Time: 03/10/18 8810 I personally evaluated the patient and discussed the management with Dr. Purvis /Saman I agree with the History, Examination, Assessment and Plan documented above with any addition or exceptions noted below- 87 yo male with h/o DM, HTN, HLD, CVA x 5 most recently in December, dementia presents c/o vomiting and constipation, Daughter states that her mother called early this morning stating that her father was having vomiting and diarrhea. Patient states that he has been constipated for the last several days and had the urge to defecate but was unable to pass any formed stool other than some liquid stool. Denies any abdominal pain. Denies any fever/chills. Daughter states that he did eat a good dinner last night. PMH/PSH/All/Meds reviewed and agree with resident's documentation. T 97.8 BP 139/61 P101 RR20 Exam repeated by me and agree with resident's findings. Labs : WBC=14.5, H/H=11.4/35.7, Jov=738, Na= 143, K=2.7, Rg=973, CO2=17, BUN/Cr= 23/ 1.94, Qyfg=230, AST/ALT=38/19, Lactic acid= 12.3 ->7.7 -> 6.9. CT abd/pelvis- slightly excessive fluid seen throughout asmall bowel together with liquid stool distending the proximal large bowel suggestive of enteritis or enterocolitis; possible pneumatosis of mid-descending colon; severe atherosclerotic plaque disease seen in origins of celiac, and bother mesesnteric arteries. A/P: 1) Fecal impaction with distended proximal large bowel- GI consulted and appreciate recommendation; plan for disimpaction; Continue antibiotics for now. GI recommended surgery consult. 2) Pneumotosis coli - appreciate surgery recommendations; no need for surgical intervention at this time. Continue serial exams. 3) Lactic acidosis- improving; continue IVF and recheck labs. 4) Penile abnormality - will consult urology as pt is having urinary retention and unable to place hernandez due to distorted anatomy 5) DM- NPO ; monitor accuchecks 6) KATT- continue IVF. 7) Hypokalemia - replace potassium and will check magnesium
[2018-03-10] MEDS: Potassium Chloride 20 MEQ in Lactated Ringer's 1,000 ML IV SCH ×2 (12:56→18:18)
[2018-03-10] MEDS ORDERED: Lidocaine 1% (PF) 30 ML VIAL ONE (14:04)
[2018-03-10] MEDS ORDERED: Labetalol HCl 100 MG/20 ML VIAL SLOW IVP PRN (14:36)
[2018-03-10] MEDS ORDERED: hydrALAZINE 20 MG/ML VIAL SLOW IVP PRN (14:36)
[2018-03-10] MEDS: Piperacillin/Tazobactam 2.25 GM in Sodium Chloride 0.9% 100 ML IVPB SCH ×2 (14:48→21:01)
[2018-03-10 15:52] LABS: Bilirubin Small (Negative); Blood, Urine Large (Negative); Clarity CLEAR (Clear); Glucose, Urine (Dipstick) Negative (Negative); Leukocyte Negative (Negative); Nitrite Negative (Negative); Protein, Urine (Dipstick) 300 mg/dL (Neg-Trace); Specific Gravity, Urine 1.013 (1.002-1.036); pH, Urine 5.5 (5.0-9.0)
[2018-03-10 15:55] LABS: Bacteria/HPF None Seen HPF (None Seen); RBC/HPF GREATER THAN 50-TNTC HPF (0-3); Squamous Epithelial 0-3 HPF (0-3); WBC/HPF 0-3 HPF (0-3)
[2018-03-10 15:56] LABS: Pathc Cast-AUWi Flag 3.48 (0-2.49)
[2018-03-10 16:04] LABS: Hyaline Casts/LPF NONE SEEN LPF (0-3 Hyaline); Manual Microscopic Reviewed? No Path Casts Seen
[2018-03-10] MEDS: NIFEdipine XL 60 MG TAB PO SCH (16:15)
[2018-03-10 16:25] LABS: Lactic Acid 3.1 mmol/L (0.5-2.2)
[2018-03-10] MEDS: Potassium Chloride 20 MEQ/100 ML PREMIX BAG IVPB SCH ×2 (16:30→18:18)
[2018-03-10] MEDS ORDERED: Bisacodyl 10 MG SUPP PR PRN (16:31)
[2018-03-10 17:22] LABS: Anion Gap 15 mmol/L (10-20); BUN (Urea Nitrogen) 24 mg/dL (8.4-25.7); Calc. Creatinine Clearance 42 mL/min (70-130); Calcium 7.4 mg/dL (7.8-10.44); Carbon Dioxide 23 mmol/L (23-31); Chloride 109 mmol/L (98-107); Estimated GFR-MDRD 48; Glucose 156 mg/dL (83-110); Magnesium 1.8 mg/dL (1.6-2.6); Potassium 3.5 mmol/L (3.5-5.1); Sodium 143 mmol/L (136-145)
[2018-03-10] MEDS ORDERED: Potassium Chloride 20 MEQ in Sodium Chloride 0.9% 250 ML 250 ML IVPB SCH (18:45)
--- NOTE | 2018-03-10 19:04 | CON ---
DATE OF CONSULTATION: 03/10/2018 HISTORY OF PRESENT ILLNESS: An 87-year-old gentleman from [place], presented with abdominal pain, nausea, unable to go to the bathroom. This has been going on now for several hours. He denies any other problems. He denies any chest pain or shortness of breath. He had a CT done of his abdomen, which showed multiple abnormalities including air in his large colon. PAST MEDICAL HISTORY: Pertinent for diabetes, multiple strokes at least 6, apparently has had hemorrhaging in the back of his head. He has weakness, able to ambulate, but with some difficulty. History of hypertension. PAST SURGICAL HISTORY: Including cataract surgery. SOCIAL HISTORY: Alcohol none. Tobacco none. MEDICATIONS: Medication from home; 1. Procardia XL 60. 2. Zestril 20. 3. Tessalon Perles. He has now been started on; 1. Zosyn. 2. Flagyl. 3. Lovenox. 4. IV fluids. REVIEW OF SYSTEMS: Otherwise, 10-point negative. PHYSICAL EXAMINATION: VITAL SIGNS: Sats are 97% on room air, respiratory rate 20, blood pressure 177/75, and temperature 98. GENERAL: He is awake, alert, and responsive, complains of abdominal pain. CHEST: Decreased breath sounds without any wheezing. CARDIAC: Normal S1 and S2. No gallops. ABDOMEN: Soft. No masses. LABORATORY DATA: His lactic acid was 12. Creatinine is 1.95. White count 14,000, H and H 11 and 35, and platelet count is normal. DIAGNOSTIC DATA: CT of the abdomen and pelvis shows previous cholecystectomy scar, moderate pulmonary venous congestion, small 4 mm nodule in the right mid lobe unknown significance, evidence of colitis. He has pneumatosis in the mid descending colon segment of large bowel. IMPRESSION: 1. Abdominal pain. 2. Colon pneumatosis. 3. Renal failure. 4. Advanced age. 5. Previous cerebrovascular accident. PLAN: Agree with the present antibiotic coverage. Await input from GI. We will follow while the patient is in the MICU. Consultation note, 70 minutes, 50% direct patient's care. Job ID: [id number]
[2018-03-10] MEDS: Docusate Sodium 100 MG/10 ML UDCUP PO SCH (20:51)
[2018-03-10] MEDS: Atorvastatin Calcium 20 MG TAB PO SCH (20:51)
[2018-03-10] MEDS: Fleet Enema 133 ML BOT FS PRN (22:08)
--- NOTE | 2018-03-10 22:23 | CON ---
DATE OF CONSULTATION: 03/10/2018 Total consultation time over 80 minutes of initial hospital consultation. This is an Intensive Care Unit consultation as well. REASON FOR CONSULTATION AND EVALUATION: 1. Acutely ill patient with evidence of sepsis. 2. Urinary retention. 3. History of penile cancer, status post partial penectomy. HISTORY OF PRESENT ILLNESS: Mr. 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 The patient reports this operation was performed at the [facility] by Dr. Karri Sarah. The patient reports that part of his penis was removed due to a lesion that he had on it. He is uncertain whether this was penile cancer or not. Mr. Tijerina speaks Welsh as his first language and with limited Sinhala. Eventually, this patient presents with signs of sepsis and was evaluated in the emergency department and found to have an elevated white blood cell count. He did undergo a CT scan of the abdomen and pelvis, which was also performed on 03/10/2018. This study showed distention of his small bowel with liquid stool back in the suggested to have possible pneumatosis involving the mid descending colonic segments of the large bowel. The patient had evidence of a prior cholecystectomy and then had a prominent extrarenal pelvis seen in the left kidney without evidence of direct obstructive uropathy. The patient's bladder was relatively filled. The patient also has a possible intrapulmonary nodule at 4.1 mm in right middle lobe. The patient's prostate gland was enlarged measuring about 5.1 cm in transverse diameter. Based on the findings, the patient was evaluated and found to have overflow incontinence. A bladder scan was performed showing over 740 mL of retained urine in patient's bladder. I was consulted to evaluate this patient in the Intensive Care Unit. PAST MEDICAL HISTORY: 1. Penile lesion or penile cancer, status post partial penectomy. 2. Hypertension. 3. History of strokes x5. 4. History of hemorrhagic brain aneurysms. 5. 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 PAST SURGICAL HISTORY: 1. Bilateral cataract surgeries. 2. Partial penectomy. 3. Cholecystectomy. PSYCHIATRIC HISTORY: Negative. SOCIAL HISTORY: No current alcohol or drug use. No smoking history. ALLERGIES: NO KNOWN DRUG ALLERGIES. MEDICATIONS: Complete outpatient medication list includes the followin. Pravastatin 80 mg p.o. at bedtime. 2. Lisinopril 10 mg tablet 2 tablets p.o. once daily. 3. Nifedipine extended release 60 mg p.o. daily. 4. Donepezil 10 mg p.o. daily. 5. Cilostazol 50 mg oral once daily. 6. Lasix 20 mg p.o. daily. PHYSICAL EXAMINATION: GENERAL: This is an elderly male, who appears slightly obtunded. He somewhat follows commands. VITAL SIGNS: This morning showed marked tachycardia, and the patient continues to have tachycardia at this point; pulse 102; blood pressure 137/53; O2 saturation on room air is 98%. HEAD, EARS, NOSE, AND THROAT: The patient is not very responsive and somewhat sedated. Sclerae appear anicteric to my exam. Oropharynx is clear and the patient is spitting up some fluid at the time of my initial evaluation. We did place an NG-tube during the course of evaluation today with significant production of dark-colored fluid from the space of stomach. ABDOMEN: Somewhat distended on examination. No focal areas of tenderness to my exam. Suprapubic area does appear to be tender to exam below the umbilicus. It is consistent with bladder distention. GENITOURINARY: Testes presently bilaterally and remarkably atrophic. Phallus is grossly uncircumcised in appearance, however, retraction of the foreskin finds the dorsal portions of the urethral stump appear to have variegated type lesion suggestive of penile cancer or condyloma acuminata. The ventral side of urethra appears normal in appearance for a post penectomy state without any evidence of cauliflower-like lesion. Digital rectal examination was performed which finds the prostate gland which is moderately enlarged, probably 40 g in size. This is somewhat indurated in overall character. EXTREMITIES: Appear within normal limits. NEUROLOGIC: Limited assessment was able to be performed on this patient due to lack of participation. LABORATORY FINDINGS: Patient's white count elevated at 14.5, hemoglobin 11.4, hematocrit 35.7, platelet count 141. The patient has relative left shift with 91.9% neutrophils. There is an elevated ANC at 13.3. Serum chemistry showed the patient has markedly elevated lactic acid at 5:05 this morning, it was 12.3, improved somewhat to 6.9 at last test at 11:00 a.m. today. The patient's admission potassium was very low at 2.7. Blood urine nitrogen 23 with a creatinine of 1.94. AST elevated at 38. Urinalysis has not been obtained prior to my evaluation of the patient. Please see separately dictated procedure note for patient's suprapubic tube insertion as well as penile biopsy at bedside. ASSESSMENT: 1. 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 2. Urinary outlet obstruction possibly secondary to prostate or scarring from patient's penectomy. The patient does have degree of overflow incontinence. For initial treatment, I am recommending placement of a suprapubic tube which will be performed today. 3. Question of origin of patient's penile lesion, biopsy of penis recommended for today. 4. Hydronephrosis is documented on patient's CT scan from 03/10/2018. The patient has a degree of [id number] dilation of the left extrarenal pelvis. This could be a congenital related change or maybe evidence of outlet obstruction with more prominent effects on the more dilated left side. 5. Gastrointestinal disorder with apparent ileus and/or small bowel obstruction. The patient is undergoing evaluation by Dr. Duvall. 6. Pulmonary nodule, relatively small, probably would require followup CT scan imaging in 6 months. 7. Enlarged prostate gland with some degree of induration. The patient will be appropriate for subsequent multiple prostate needle biopsy as well as PSA evaluation, potentially did not instrument this patient today, so PSA evaluation may be obtained in the hospital. The patient does not appear to be sick from the standpoint of prostatitis. Urine appears grossly clear after SP tube was placed and urine will be sent for culture, however. Over 80 minutes of initial consultation assessment time was spent on evaluation of this patient today. Job ID: [id number]
--- NOTE | 2018-03-10 22:31 | OP ---
DATE OF PROCEDURE: 03/10/2018 PREPROCEDURAL DIAGNOSES: 1. Urinary retention. 2. BPH, possibly with obstruction. 3. Verrucous lesion of the penis following previous penectomy suggestive of penile carcinoma or condyloma acuminata. 4. Sepsis. 5. Ileus and/or small bowel obstruction. POSTPROCEDURAL DIAGNOSES: 1. Urinary retention. 2. Benign prostatic hypertrophy, possibly with obstruction. 3. Verrucous lesion of the penis following previous penectomy suggestive of penile carcinoma or condyloma acuminata. 4. Sepsis. 5. Ileus and/or small bowel obstruction. 6. Penile biopsy tissue pending for pathology. PROCEDURES PERFORMED: 1. Suprapubic catheter insertion. 2. Penile biopsy under local anesthetic. BRIEF HISTORY AND INDICATIONS FOR PROCEDURE: Mr. Aakash Tijerina is an 87-year-old [place]araguan speaking male who presented with altered mental status and signs of sepsis to the emergency department and underwent initial evaluation. The patient has apparent urinary retention and inability to empty his bladder. He has had previous penile surgery with a partial penectomy being performed and with recurrent appearing verrucous lesions of the penis suggestive of condyloma acuminata or penile carcinoma. The patient was noted to have enlarged prostate gland on CT scan and my physical examination it did suggest a degree of induration to the prostate gland suggestive of either chronic prostatitis or prostate cancer. DESCRIPTION OF PROCEDURE: The patient was appropriately identified and informed written consent was obtained from the patient's children as the patient has altered mental status. Discussed risks, benefits, and alternatives to penile biopsy and suprapubic tube insertion. They were in agreement with proceeding with that. The patient was appropriately identified and informed written consent was obtained. The patient was evaluated in the ICU bed and was sterilely prepped and draped in the usual sterile fashion. We prepped the lower abdomen as well as the patient's genitals. The lower abdomen was evaluated prior to this procedure using a bedside bladder scan device indicating over 700 mL of retained urine in the patient's bladder. We selected a location above the pubic symphysis by approximately 2 to 3 cm and below the umbilicus by approximately 4 cm. We infiltrated this area with 1% plain lidocaine. Also infiltrated the dorsal aspect of the patient's penis with an area of verrucous lesions with 1% plain lidocaine. The patient also received a penile block, also 1% plain lidocaine. Following this, the patient achieved adequate anesthesia. We utilized a 22-gauge spinal needle to identify the patient's bladder depth. This was found to be approximately 3 cm in his abdomen in the midline. We made a transverse incision using an 11 blade knife. We then utilized the Rutner suprapubic catheter, which was passed into the patient's bladder. This was 15-Portuguese diameter with a 4 mL balloon. We inflated the balloon to 4 mL. We secured the catheter to the patient's abdomen using 2-0 silk suture. Catheter was hooked to drainage. The specimen was collected for culture and urinalysis. The patient's bladder was drained completely and had over 3000 mL of urine return. We then turned our attention to the patient's penile biopsy, selected an area of verrucous type lesion and made a small biopsy of this. This was sent for permanent section. The patient tolerated the procedure well with no undue issues. He was in good condition following the procedure with vital signs essentially unchanged. COMPLICATIONS: None. SPECIMENS: 1. Penile biopsy for permanent section. 2. Urinalysis and culture. DRAINS AND TUBES: A 14-Portuguese Rutner suprapubic tube placed to the bladder. COMPLICATIONS: None apparent. Job ID: [id number]
--- NOTE | 2018-03-10 23:40 | CON ---
DATE OF CONSULTATION: REASON FOR CONSULT: Possible ischemic bowel. HISTORY: Mr. Tijerina is an 87-year-old man who was brought into the hospital for nausea, vomiting, and abdominal pain. He was also having diarrhea after not having any bowel movements for many days. When I saw the patient, he was denying any abdominal pain or nausea, but he was continuing to have diarrhea. Workup in the emergency room showed a large amount of stool in the rectum with slightly dilated colon proximal to this filled with liquid stool. There was some questionable pneumatosis in the descending colon and heavily calcified mesenteric vessels. IV contrast was not administered since the patient has some renal insufficiency with a creatinine of 1.94. On his arrival, the patient was found to have an elevated lactic acid of 12.3, but with IV fluids, that has gone down, and when I saw him this morning, it was down to 6.9. He was having difficulty voiding. Urology had been consulted for this and had plans to place a suprapubic catheter at the bedside for suspected penile cancer. PAST MEDICAL HISTORY: Hypertension and stroke, which was hemorrhagic in etiology with some residual right-sided weakness. He has a surgical history of cataracts. SOCIAL HISTORY: He does not smoke, drink, or use illicit drugs. ALLERGIES: HE HAS NO KNOWN DRUG ALLERGIES. MEDICATIONS: He takes multiple medications at home includin. Pravastatin. 2. Lisinopril. 3. Nifedipine. 4. Donepezil. 5. Cilostazol. 6. Lasix. REVIEW OF SYSTEMS: Somewhat limited, but the patient is cooperative. He denies any shortness of breath, chest pain, abdominal pain, or nausea. PHYSICAL EXAMINATION: VITAL SIGNS: The patient has been afebrile since his admission with a T-max of 99.6, heart rate was elevated when I saw him in the low 100 range. He was saturating well on room air with a normal respiratory rate and normal to mildly elevated blood pressure. GENERAL: Reveals a healthy-appearing 87-year-old man who is in no acute distress. He is not flushed or toxic, jaundiced or icteric in appearance. HEENT: Unremarkable. NECK: Supple without lymphadenopathy or thyroid nodules. HEART: Regular, although slightly tachycardic without murmurs, rubs, or gallops. LUNGS: Clear. ABDOMEN: Soft, nontender, nondistended. EXTREMITIES: Warm with only minimal ankle edema. NEURO: No focal deficits, although he has reported right-sided weakness. He has 5/5 strength and is cooperative and following commands. RECTAL: Showed a large amount of liquid stool around a stool bowl in the rectal vault, which was manually disimpacted with removal of a large amount of formed stool as well as passage of a large amount of liquid stool, but none of the stool was bloody. There was a more formed stool at the top of the rectal vault, which could not be reached. The patient also had a nodular mass in the anal canal on the right posterior area, which was not visible externally, but was easily palpable. No rectal masses were felt. However, it was felt this could represent either a thrombosed internal hemorrhoid or a polypoid lesion of the anal canal. LABORATORY DATA: Potassium was low at 2.7 with replacement ordered. Creatinine was elevated at 1.94. Lactic acid was 12.3, had gone down to 6.9 when I saw him and has since further declined to 3.1. Troponin was normal at 0.022. White count was mildly elevated at 14.5, hemoglobin 11.4, hematocrit 35.7, and platelets 141. CT images are reviewed and I agree with the written report, but I feel that the gas in the descending colon is most likely intraluminal. His stomach is quite distended with liquid. IMPRESSION AND RECOMMENDATIONS: I recommended placement of an NG tube and bowel rest with continued hydration and resuscitation. Since his lactate is normalizing, I think he is most likely dehydrated from his nausea, vomiting, and diarrhea rather than ischemic bowel, especially in the absence of abdominal pain. Gastroenterology has been consulted and colonoscopy can be considered, although at his advanced age, the risks may outweigh the benefits. I do not see any indication for surgical intervention at this time, but he does need to complete his disimpaction with enemas and repeated digital disimpaction as necessary. Job ID: [id number]
[2018-03-11] MEDS: Potassium Chloride 20 MEQ in Lactated Ringer's 1,000 ML IV SCH ×4 (00:07→14:20)
[2018-03-11] MEDS: metroNIDAZOLE 500 MG in Premix Bag 1 BAG IVPB SCH ×5 (00:07→23:00)
[2018-03-11] MEDS: Piperacillin/Tazobactam 2.25 GM in Sodium Chloride 0.9% 100 ML IVPB SCH (05:03)
[2018-03-11 05:18] LABS: Anion Gap 11 mmol/L (10-20); BUN (Urea Nitrogen) 25 mg/dL (8.4-25.7); Calc. Creatinine Clearance 48 mL/min (70-130); Calcium 7.3 mg/dL (7.8-10.44); Carbon Dioxide 26 mmol/L (23-31); Chloride 113 mmol/L (98-107); Estimated GFR-MDRD 56; Glucose 113 mg/dL (83-110); Potassium 3.6 mmol/L (3.5-5.1); Sodium 146 mmol/L (136-145)
[2018-03-11 05:52] LABS: #Lymphocytes 1.1 thou/uL (1.20-3.40); #Monocytes 1.2 thou/uL (0.11-0.59); #Neutrophils 12.4 thou/uL (1.40-6.50); %Basophils 0.3 % (0.0-1.0); %Eosinophils 0.1 % (0.0-10.0); %Lymphocytes 7.1 % (21.0-51.0); %Monocytes 8.1 % (0.0-10.0); %Neutrophils 84.5 % (42.0-75.0); Hemoglobin 11.3 g/dL (14.0-18.0); Large Platelets SLIGHT; MDiff Complete? YES; Mean Corpuscular Hemoglobin 33.4 pg (27.0-31.0); PLT Morphology Comment Appears Decreased; Platelet Count 111 thou/uL (130-400); Red Blood Cell (RBC) Count 3.38 mill/uL (4.70-6.10); White Blood Cell (WBC) Count 14.7 thou/uL (4.8-10.8)
--- NOTE | 2018-03-11 06:11 | PDOC.FM ---
- Objective Vital Signs & Weight: Vital Signs (12 hours) Temp Pulse Resp BP Pulse Ox 03/11/18 04:00 98.6 F 81 16 144/51 H 98 03/11/18 01:17 122/66 03/11/18 00:00 98.8 F 83 17 162/68 H 96 03/10/18 20:00 99.4 F 85 18 150/56 H 99 Weight Weight 78.744 kg I&O: 03/09/18 03/10/18 03/11/18 06:59 06:59 06:59 Intake Total 2726 Output Total 2532 Balance 194 Result Diagrams: 03/11/18 04:31 03/11/18 04:31 Dx/Plan - Plan Plan: severe sepsis for presumed infection, enteritis vs enterocolitis vs mesenteric ischemia A- CT abdomen concerning for colon wall ischemia as well as showing fecal impaction with colon distention. Pt meets sirs criteria on presentation. he has received 3L NS. 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 creatinine clearance 30 P- will renally dose medications HTN, HLD, DM -continue home medications Disposition: Stable, will continue current plan of care.
--- NOTE | 2018-03-11 07:42 | PDOC.FM ---
- Subjective Subjective: Patient reports doing well overnight. No abdominal pain, CP, SOB, N/V. Overnight nurse he had multiple BM which are now becoming more soft and formed after receiving fleet enema. Patient was also disimpacted at least once yesterday. - Objective MAR Reviewed: Yes Vital Signs & Weight: Vital Signs (12 hours) Temp Pulse Resp BP Pulse Ox 03/11/18 07:29 98.6 F 80 16 177/70 H 97 03/11/18 04:00 98.6 F 81 16 144/51 H 98 03/11/18 01:17 122/66 03/11/18 00:00 98.8 F 83 17 162/68 H 96 03/10/18 20:00 99.4 F 85 18 150/56 H 99 Weight Weight 78.744 kg I&O: 03/10/18 03/11/18 03/12/18 06:59 06:59 06:59 Intake Total 2726 Output Total 3632 Balance -906 Result Diagrams: 03/11/18 04:31 03/11/18 04:31 Phys Exam - Physical Examination Constitutional: NAD NG tube in place Neck: full ROM Respiratory: no wheezing, clear to auscultation bilateral Cardiovascular: RRR, no significant murmur Gastrointestinal: soft, positive bowel sounds mildly TTP in LLQ, suprapubic catheter in RLQ trace pitting edema in LE b/l Neurological: normal sensation, moves all 4 limbs Psychiatric: normal affect Dx/Plan (1) Colitis Code(s): K52.9 - NONINFECTIVE GASTROENTERITIS AND COLITIS, UNSPECIFIED Status : Acute Plan: -per CT, infectious vs enteritis vs entercolitis -patient has been disimpacted, will continue to monitor BM -Jadiel Kaur, and Yoel have been consulted, recs greatly appreciated -NG tube placed with good output yesterday, nurse reported 500ml over mini shifter -abd xray also pending -zosyn and flagyl started yesterday, continue -abx no longer renally dosed as cr clearance improved to 40s -bowel regimen with miralax and senna -possible transfer to the floor pending clearance from specialists (2) Diabetes Code(s): E11.9 - TYPE 2 DIABETES MELLITUS WITHOUT COMPLICATIONS Status: Acute (3) Fecal impaction in rectum Code(s): K56.41 - FECAL IMPACTION Status: Acute Plan: improved, continue to monitor for spontaneous BM with peristalsis (4) Hypokalemia Code(s): E87.6 - HYPOKALEMIA Status: Acute Plan: resolved, suspect this is low due to n/v continue to monitor (5) Lactic acid acidosis Code(s): E87.2 - ACIDOSIS Status: Acute Plan: improving anion gap has resolved continue with fluids (6) 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, UNSPECIFIED Status: Acute Plan: Urology consulted, recs greatly appreciated penile biopsy taken yesterday suprapubic catheter placed and draining, urine culture pending (7) Sepsis Code(s): A41.9 - SEPSIS, UNSPECIFIED ORGANISM Status: Acute (8) Hyperlipidemia Code(s): E78.5 - HYPERLIPIDEMIA, UNSPECIFIED Status: Acute (9) Hypertension Code(s): I10 - ESSENTIAL (PRIMARY) HYPERTENSION Status: Acute Plan: stable, continue to monitor Addendum - Attending - Attending Attestation Date/Time: 03/11/18 1052 I personally evaluated the patient and discussed the management with Dr. Davison I agree with the History, Examination, Assessment and Plan documented above with any addition or exceptions noted below- Patient without complaints. Feeling much better. States that he feels hungry. Afebrile VSS A/P: 1) Fecal impaction- improved; disimpacted yesterday and enema given with several BM; Awaiting KUB this morning. Appreciate GI and surgery recommendations 2) Urinary retention- s/p suprapubic catheter placement- appreciate urology assistance; urine draining well; continue to monitor output. 3) Penile lesion s/p biopsy- await path report. 4) HTN- BP elevated this morning; will restart home meds. PLan to transfer to floor later today.
[2018-03-11] MEDS ORDERED: Bisacodyl 10 MG SUPP PR SCH (09:00)
--- NOTE | 2018-03-11 09:29 | RAD ---
FRONTAL RADIOGRAPH CHEST: Date: 03/11/18 COMPARISON: 01/09/18. HISTORY: Congestive heart failure. FINDINGS: Nasogastric tube curls in the stomach. Atherosclerotic calcification of the aortic arch noted. Shallow inspiration limits detailed assessment of the lung bases. There is patchy increased density i n the perihilar regions and both lung bases which may signify edema, infectious pneumonitis, and/or v olume loss. IMPRESSION: Shallow inspiration with hazy bibasilar nonspecific increased density. Nasogastric tube in place. POS: MARY BETH
[2018-03-11 09:30] LABS: Folate (Folic Acid) 9.2 ng/mL (7.0-31.4)
[2018-03-11] MEDS: Enoxaparin Sodium 40 MG/0.4 ML SYRINGE SC SCH (10:07)
[2018-03-11] MEDS: Docusate Sodium 100 MG/10 ML UDCUP PO SCH ×2 (10:07→23:05)
[2018-03-11] MEDS: Furosemide 20 MG TAB PO SCH (10:11)
[2018-03-11] MEDS: Piperacillin/Tazobactam 3.375 GM in Sodium Chloride 0.9% 100 ML IVPB SCH ×3 (10:27→22:54)
--- NOTE | 2018-03-11 10:59 | PRG ---
DATE OF SERVICE: 03/11/2018 SUBJECTIVE: This morning, he is better, less abdominal pain. He has had a bowel movement. OBJECTIVE: VITAL SIGNS: Blood pressure 194/76, temperature 98, respiratory rate 16, pulse 80. CHEST: No wheezing. CARDIAC: Normal S1 and S2. No gallops. ABDOMEN: No masses. LABORATORY DATA: Creatinine 1.26. Lactic acid is much decreased. He has a suprapubic catheter in place. His white count 14,000, H and H 11 and 34, and platelet count is 111. IMPRESSION: 1. Abdominal pain, pneumatosis coli. 2. Azotemia. 3. Benign prostatic hyperplasia. PLAN: All cultures are so far negative. I will continue present antibiotic coverage, PT, and supportive care. Probably appears to be stable enough to be transferred out of the MICU. Job ID: [id number]
[2018-03-11] MEDS: NIFEdipine XL 60 MG TAB PO SCH (11:00)
[2018-03-11] MEDS: Lisinopril 20 MG TAB PO SCH (11:01)
--- NOTE | 2018-03-11 11:11 | CON ---
DATE OF CONSULTATION: REASON FOR CONSULT: Colonic obstruction. HISTORY OF PRESENT ILLNESS: Mr. 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 His most recent admission here for stroke was in January. His son and daughter are at the bedside. He is from [facility] and apparently, his daughter notes he has been constipated since early in the week at least Monday. He had been taking laxatives at home. The last night, the patient's telephoned the daughter and told her that he just felt worse, was nauseated and felt like he could not belch. He had many bowel movements on the way to the emergency room. Once he got to the emergency room, apparently, he had several. In the emergency room, apparently, there was a story about him eating Marshallese food and that made him sick, but probably he started taking some laxatives at home. He was having some loose stool repetitively according to son, who shows up about alf through the interview and in fact, he did have multiple bowel movements before he went to the emergency room yesterday, but the emergency room doctor told him that it likely was related to the impaction and liquid stool coming around. The patient was transferred from [place] to here, where he had a CAT scan that showed large fecal impaction, there is excessive fluid in the small bowel and colon. There is some pneumatosis in the mid descending colon. 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 Presently, the patient has had rectal examination with General Surgery, and the nurses note a large amount of stool was found in the rectum; however, there is no overt notation of an obstructed colon per Radiology. Apparently, the patient states he is experiencing a lot of gas in the stomach and he reports that his abdominal pain is better. In talking with the family, he does have problems intermittently with constipation. PAST MEDICAL HISTORY: Hypertension, hyperlipidemia; 5 previous strokes, last January this year; history of brain aneurysm x2; history of dementia, secondary to strokes; osteoarthritis, and diabetes. PAST SURGICAL HISTORY: Cataract surgery. FAMILY HISTORY: Brain cancer in the father. Mother with pancreatic cancer, diabetes, and liver cancer. Brother is well. SOCIAL HISTORY: The patient does not smoke, does not drink alcohol. He is retired and . Lives with his . ALLERGIES: SULFA. MEDICATIONS: At home; 1. Pravastatin. 2. Lisinopril. 3. Nifedipine. 4. Furosemide. 5. Donepezil. 6. . Present medications; 1. Lovenox. 2. Flagyl. 3. Zosyn. 4. Lovenox subcu. 5. LR is 200 an hour. PHYSICAL EXAMINATION: VITAL SIGNS: Pulse is about 89 to 90, O2 saturation 98%, and respirations 16, and blood pressure 139/61. GENERAL: The patient is resting comfortably in bed. He speaks Slovenian. Oropharynx slightly dry. NECK: Supple. No adenopathy. LUNGS: Clear. ABDOMEN: Bowel sounds are scantly positive with tympany. There is no rebound. There is no guarding. There is no left-sided tenderness. RECTAL: Deferred as the nurses note he was just fecally disimpacted by Dr. Duvall. LABORATORY DATA: Lactic acid is 12.3 at 5:00 a.m., 6.9 at 11:00. Sodium 143, potassium 2.7, chloride 107, bicarb 17, anion gap 24, BUN 23, creatinine 1.94, calcium 8.5. AST 30, ALT 19, albumin 3, total protein 6. Troponin was 0.02. White count is 14.5, hemoglobin 11.4, and platelet count 144. IMAGING STUDIES: On my review of his CAT scan, there appears to be fairly prominent gastric bubble with fluid and air. The films are limited by lack of any oral or IV contrast, colon full of stool and rectosigmoid, but no overt signs of colonic obstruction noted. I did not fully appreciate the pneumatosis Radiology reports in the descending colon, but talking with them, I can appreciate what they are alluding to. ASSESSMENT: I suspect this gentleman probably has a little bit of mild ischemic colitis from being obstipated and may be impacted and then taking lactulose. The possibility of an infectious diarrhea is not out of the question. There is some indication he ate out and then he began to feel ill. Presently, there may be some pneumatosis in his CAT scan, does not show signs of overt gangrene or perforation of bowel. He does have a fecal impaction and protuberant stomach. He did have a lactic acidosis initially on his labs, which is now improving although his leukocytosis is worsening. negative, occult blood positive. RECOMMENDATIONS: 1. Agree with NG tube suction and bowel rest. 2. Fecal disimpaction with enema suppositories q.4 hours p.r.n. 3. Agree with empiric antibiotics. 4. Agree with Dr. Duvall would not move toward surgery at this point in time, told to manage him conservatively. Job ID: [id number]
[2018-03-11] MEDS: Fleet Enema 133 ML BOT FS PRN (11:32)
--- NOTE | 2018-03-11 11:41 | RAD ---
UPRIGHT AND SUPINE FRONTAL IMAGING OF ABDOMEN AND PELVIS: Date: 03/11/18 COMPARISON: None. HISTORY: Gastric distention and fecal impaction. FINDINGS: There is a nasogastric tube curling in the left upper quadrant. On the upright imaging, there is a pa ucity of bowel gas within the mid abdomen and a complete lack of bowel gas in the pelvis. There is sm all volume fluid within the colon with air fluid levels seen on upright imaging. The supine imaging d emonstrates scattered gas within nondilated small bowel. IMPRESSION: Paucity of bowel gas in the mid abdomen and pelvis. Nasogastric tube in place. No evidence for free i ntraperitoneal air or small bowel obstruction. POS: [facility]
[2018-03-11] MEDS ORDERED: Cyanocobalamin 1000 MCG/ML VIAL IM SCH (14:00)
--- NOTE | 2018-03-11 14:24 | PRG ---
DATE OF SERVICE: 03/11/2018 SUBJECTIVE: Mr. Tijerina is resting comfortably. His NG tube is in place. He is more alert. His family is at bedside. He has had some intermittent disimpaction overnight and yesterday afternoon. He is without complaints of abdominal pain. OBJECTIVE: VITAL SIGNS: Temperature is 98, pulse 80, blood pressure 169/87. LUNGS: Clear. HEART: Regular rhythm without murmurs. ABDOMEN: Soft, nontender. Bowel sounds are quiescent. Gastric NG tube drainage is 1550 yesterday. Urine output 1475, stools 600. He had a suprapubic catheter placed yesterday. NG tube is still in place. Abdomen is soft and nontender. IMAGING STUDIES: Plain films, they reveal resolution of gastric distention in the small bowel, colonic distention, still few loops of small bowel that are prominent. There is no free air seen. LABORATORY: White count 14.7, hemoglobin 11.3, platelet count 111. Sodium 146, potassium 3.6, chloride 113, bicarb 26, BUN and creatinine of 25 and 1.23. B12 and folate were 250 and 920. RECOMMENDATIONS: 1. B12 borderline. I would replace that in light of the patient's elevated MCV. 2. Continue disimpaction till clear. 3. With regard to the patient's pneumatosis intestinalis, we would continue to treat this conservatively with NG tube decompression and n.p.o. status and IV antibiotics. Continues to improve, possibly remove the NG tube and try some clear liquids in the next day or two. Job ID: [id number]
--- NOTE | 2018-03-11 16:41 | PRG ---
DATE OF SERVICE: 03/11/2018 DATE OF INITIAL CONSULTATION: 03/10/2018. BRIEF HISTORY: Mr. Aakash Tijerina is an 87-year-old white male admitted with pneumatosis of the intestines and in addition was found to be in urinary retention. 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 This underwent biopsy yesterday. The patient's urinary retention was treated with a suprapubic tube placement due to the penile mass. The patient has also probable BPH based on CT scan imaging. Today, the patient from an Infectious Disease standpoint appears to be about the same condition as he was yesterday with nearly the same white blood cell count changing from 14,500 to 14,700 today. Percent neutrophils also minimally changed decreasing from 91.9% to 84.4%. The patient had an NG tube in overnight. Reports that he feels somewhat better after having bowel rest. This morning, his NG tube is kept. Overnight, he has developed gross hematuria after the suprapubic tube placement, does not appear to be obstructing his catheter drainage. PHYSICAL EXAMINATION: VITAL SIGNS: Temperature is 98.0, pulse 80, respirations 16, blood pressure is 169/87. HEAD, EYES, EARS, NOSE, AND THROAT: Extraocular movements are intact. Sclerae anicteric. Oropharynx is clear. NECK: Supple. LUNGS: Clear to auscultation bilaterally. ABDOMEN: The patient has NG tube in place, but this has not suctioned this morning. The patient's suprapubic tube remains in place and is secured to the abdomen both with balloon in the bladder and suture material which remains in place. He has a small amount of clot material in it today. It is not suggestive of significant bleeding, but is likely secondary to use of Lovenox for the patient in addition to the SP-tube placement. GENITOURINARY: The patient's biopsy site is not bleeding. There is a small amount of clotted blood present at the original site. We did not use cautery on the lesion in case further pathology is needed. LABORATORY STUDIES: The patient's white count is minimally increased to 14,700 from 14,500. The platelet count is decreased somewhat to 111,000 from 141,000. Neutrophil count almost unchanged decreasing from 91.9% to 84.5%. On microbiology, the patient's urine culture obtained from the suprapubic catheter remains pending, but the preliminary culture shows no growth. Blood cultures and stool cultures all in preliminary status. ASSESSMENT: 1. Urinary retention, currently managed by indwelling suprapubic tube. If hematuria continues, consideration of withdrawal from Lovenox should be made. 2. Outlet obstruction. This is currently managed by the suprapubic tube, but may be due to BPH or possible regrowth of condyloma or penile cancer. Pathology remains pending on that and likely will not be available until after the holiday. 3. Renal insufficiency, likely secondary to outlet obstruction. The patient has had stability of his blood urea nitrogen changing from 24 to 25. The creatinine decreased overnight from 1.41 to 1.23. Estimated glomerular filtration rate has improved from 48 to 56 with the suprapubic tube placement. 4. For now, acute issues may be managed by appropriate hydration with the SP-tube in place. 5. Bowel issues are currently followed by Dr. Duvall, who is following a conservative course with bowel rest at the present time. TIME SPENT: Over 35 minutes of consultation and assessment time was spent in evaluation of this patient today. Job ID: [id number]
[2018-03-11] MEDS ORDERED: Magnesium Citrate 300 ML BOT PER TUBE SCH (19:30)
--- NOTE | 2018-03-11 19:46 | PRG ---
DATE OF SERVICE: 03/11/2018 SUBJECTIVE: Aakash Tijerina is doing well today. He is comfortable. He has had a suprapubic catheter placed by Dr. Sage. He is having some discomfort from that. He had an abdominal x-ray today revealing gas in the transverse colon. I did not see any evidence of a fecal impaction. Nurses have been giving enemas with only liquid results. There are a few air fluid levels in the colon, but no evidence of a bowel obstruction. This is nonspecific. The patient's CAT scan of the abdomen and pelvis on 03/10/2018, revealed some air-fluid levels in the colon, stool in the sigmoid colon and rectum. NG tube output has been 1550 overnight. He has had 300 mL out today. White count is 14, hemoglobin 11.3, sodium 146, BUN 25, creatinine 1.23. OBJECTIVE: LUNGS: Clear to auscultation. CARDIAC: Regular rate and rhythm without murmur or gallop. ABDOMEN: Soft, flat, nontender, nondistended, non tympanitic. The patient's lactate acid is improved from 7.7 to 3.1 yesterday, was not recheck today. His CO2 is 26. ASSESSMENT AND PLAN: Abdominal pain, nausea. I think secondary to mostly dehydration. He was constipated, but enemas have been successful and cleaned that out. I would recommend giving magnesium citrate per NG tube, clamping it and then consider removing it tomorrow. I did not see any indication to continue Dulcolax suppositories. No indication for surgery at this point. We will give him Mag citrate, clamp the NG tube for an hour and removed the tube, and see how he tolerates this. Job ID: [id number]
[2018-03-11] MEDS: Atorvastatin Calcium 20 MG TAB PO SCH (21:28)
[2018-03-11] MEDS: Donepezil HCl 10 MG TAB PO SCH (21:28)
[2018-03-12] MEDS: Piperacillin/Tazobactam 3.375 GM in Sodium Chloride 0.9% 100 ML IVPB SCH ×4 (04:49→23:02)
[2018-03-12] MEDS: Potassium Chloride 20 MEQ in Lactated Ringer's 1,000 ML IV SCH ×4 (04:59→17:23)
[2018-03-12] MEDS: metroNIDAZOLE 500 MG in Premix Bag 1 BAG IVPB SCH ×4 (05:02→21:41)
[2018-03-12 06:26] LABS: #Lymphocytes 1.1 thou/uL (1.20-3.40); #Monocytes 0.6 thou/uL (0.11-0.59); #Neutrophils 10.3 thou/uL (1.40-6.50); %Basophils 0.3 % (0.0-1.0); %Eosinophils 0.2 % (0.0-10.0); %Lymphocytes 9.3 % (21.0-51.0); %Neutrophils 85.2 % (42.0-75.0); Hemoglobin 11.8 g/dL (14.0-18.0); Mean Corpuscular Hemoglobin 33.8 pg (27.0-31.0); Mean Platelet Volume 10.5 fL (7.4-10.4); Platelet Count 126 thou/uL (130-400); RBC Distribution Width 14.3 % (11.5-14.5); White Blood Cell (WBC) Count 12.1 thou/uL (4.8-10.8)
[2018-03-12 06:49] LABS: Anion Gap 10 mmol/L (10-20); BUN (Urea Nitrogen) 21 mg/dL (8.4-25.7); Calc. Creatinine Clearance 51 mL/min (70-130); Calcium 7.4 mg/dL (7.8-10.44); Carbon Dioxide 24 mmol/L (23-31); Chloride 116 mmol/L (98-107); Estimated GFR-MDRD 60; Glucose 104 mg/dL (83-110); Potassium 3.3 mmol/L (3.5-5.1); Sodium 147 mmol/L (136-145)
--- NOTE | 2018-03-12 07:55 | PDOC.FM ---
- Subjective Subjective: 86 yo gentleman with HTN, HLD, presents with constipation admitted for severe sepsis secondary to volume depletion from a diarrheal illness vs ischemic bowel , hosp day 1. Did well overnight. 8 episodes of diarrhea. Still has the NG tube in place but plan is to pull it and advance his diet. Complaining of burning on his bottom due to a contact dermatitis. - Objective MAR Reviewed: Yes Vital Signs & Weight: Vital Signs (12 hours) Temp Pulse Resp BP BP Pulse Ox 03/12/18 07:18 98 F 87 17 150/69 H 96 03/12/18 04:00 98.5 F 85 20 132/55 L 96 03/12/18 00:00 97.5 F L 81 20 145/67 H 92 L 03/11/18 20:00 99.4 F 74 20 145/67 H 99 Weight Weight 78.744 kg I&O: 03/11/18 03/12/18 03/13/18 06:59 06:59 06:59 Intake Total 2726 3239.5 Output Total 3632 1650 Balance -906 1589.5 Result Diagrams: 03/12/18 05:43 03/12/18 05:43 Phys Exam - Physical Examination Constitutional: NAD HEENT: PERRLA, moist MMs Respiratory: no wheezing, no rales, clear to auscultation bilateral Cardiovascular: RRR, no significant murmur Gastrointestinal: soft, non-tender Musculoskeletal: no edema, pulses present Neurological: non-focal, normal sensation Psychiatric: normal affect, A&O x 3 Skin: no rash Dx/Plan (1) Severe sepsis Code(s): A41.9 - SEPSIS, UNSPECIFIED ORGANISM; R65.20 - SEVERE SEPSIS WITHOUT SEPTIC SHOCK Status: Resolved (2) Sepsis Code(s): A41.9 - SEPSIS, UNSPECIFIED ORGANISM Status: Resolved (3) Enterocolitis Code(s): K52.9 - NONINFECTIVE GASTROENTERITIS AND COLITIS, UNSPECIFIED Status : Acute (4) Fecal impaction in rectum Code(s): K56.41 - FECAL IMPACTION Status: Acute (5) Hypokalemia Code(s): E87.6 - HYPOKALEMIA Status: Acute (6) Lactic acid acidosis Code(s): E87.2 - ACIDOSIS Status: Resolved (7) 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, UNSPECIFIED Status: Chronic (8) Hypertension Code(s): I10 - ESSENTIAL (PRIMARY) HYPERTENSION Status: Chronic (9) Diabetes Code(s): E11.9 - TYPE 2 DIABETES MELLITUS WITHOUT COMPLICATIONS Status: Chronic Qualifiers: Diabetes mellitus type: type 2 (10) Hyperlipidemia Code(s): E78.5 - HYPERLIPIDEMIA, UNSPECIFIED Status: Acute - Plan Plan: 87 yo gentleman admitted for severe sepsis 2/2 enteritis/enterocolitis vs mesenteric ischemia #severe sepsis 2/2 enteritis vs enterocolitis vs mesenteric ischemia -consulted GI, recs greatly appreciated -blood cultures NGTD -continue IV flagyl and zosyn for now; plan to pull NG and advance diet as tolerated, likely transition to PO flagyl tomorrow #fecal impaction -improved, s/p 8 diarrheal episodes -s/p manual disinpaction, several enemas #anion gap lactic acidosis -resolved -continue fluids #hypokalemia -replaced this am -recheck bmp in am #KATT -resolved #Macrocytic Anemia -Vit b12 low normal, started on Vit b12 #penile lesion with urinary retention -s/p biopsy of penis lesion -hx of penile cancer vs penile lesion (noncancerous) -urology onboard; appreciate recs -suprapubic catheter placed -psa normal -no signs of prostatitis, likely prostate biopsy outpatient per urology recs -will start flomax -concern for UTI d/t obstruction, continue zosyn, urine culture shows NGTD #HTN, HLD, DM -continue home medications
[2018-03-12] MEDS ORDERED: Menthol/Zinc Oxide 283 GM BOT TOP PRN (08:11)
[2018-03-12] MEDS ORDERED: Polyethylene Glycol 3350 17 GM Packet PO SCH (09:00)
[2018-03-12] MEDS: Enoxaparin Sodium 40 MG/0.4 ML SYRINGE SC SCH (10:44)
[2018-03-12] MEDS: Docusate Sodium 100 MG/10 ML UDCUP PO SCH ×2 (11:04→21:38)
[2018-03-12] MEDS: Furosemide 20 MG TAB PO SCH ×3 (11:04→14:23)
--- NOTE | 2018-03-12 11:37 | PRG ---
DATE OF SERVICE: 03/12/2018 SUBJECTIVE: Mr. Tijerina is resting quietly in bed, in no distress. He was admitted with early ischemic colitis and responded well to fluids, bowel cleansing, and antibiotics. He has already been seen in consultation by the GI Service and by the Surgery Service. Surgery does not believe the surgery is indicated at this time and we will continue to administer fluids, antibiotics, and gradually advance his diet. He also has a lesion on his penis, which is likely malignant. Urology is following and continuing this workup on this as a biopsy is pending. Job ID: [id number]
[2018-03-12] MEDS ORDERED: Ibuprofen 800 MG TAB PO PRN (14:02)
[2018-03-12] MEDS: Acetaminophen 500 MG TAB PO PRN ×2 (14:23→21:43)
[2018-03-12] MEDS: Lisinopril 20 MG TAB PO SCH (14:24)
[2018-03-12] MEDS: NIFEdipine XL 60 MG TAB PO SCH (14:24)
--- NOTE | 2018-03-12 14:52 | PRG ---
DATE OF SERVICE: 03/12/2018 SUBJECTIVE: Mr. Tijerina feels better. He has had multiple bowel movements last night and one this morning. He has his NG tube clamped per General Surgery. He has no nausea or vomiting. MEDICATIONS: 1. Lipitor. 2. Vitamin B12. 3. Dulcolax. 4. Lovenox. 5. Furosemide. 6. Normodyne. 7. Nifedipine. 8. Zosyn. 9. LR 100 an hour. 10. . OBJECTIVE: VITAL SIGNS: Temperature 97.5, T-max 98, blood pressure 150/69, pulse is 87, and O2 saturation 96%. GENERAL: The patient is awake, alert, and oriented. His son is at the bedside. LUNGS: Clear. HEART: Regular rate and rhythm. ABDOMEN: Soft and nontender. There is no rebound. There is no guarding. EXTREMITIES: No clubbing, cyanosis, or edema. LABORATORY DATA: White count is 12.1, hemoglobin is 11.8, and platelet count 126. Sodium 147, potassium 3.3, BUN and creatinine are 21 and 1.15. Urine blood cultures are negative so far. Stool for Clostridium difficile is negative. Cultures are negative. ASSESSMENT: 1. Fecal impaction, seemingly resolved. 2. He is tolerating nasogastric tube clamped. 3. Pneumatosis of the colon on admission with no overt signs of perforation or sepsis at this time. RECOMMENDATION: I think we can start clear liquids if okay with General Surgery. We recently placed him on MiraLax for a bowel regimen and enemas and suppositories have been stopped by General Surgery. Job ID: [id number]
--- NOTE | 2018-03-12 14:59 | PRG ---
DATE OF SERVICE: 03/12/2018 SUBJECTIVE: The patient feels well. No complaints. OBJECTIVE: VITAL SIGNS: Temperature 97.3, blood pressure 161/70, pulse 87, and respiratory rate 17. ABDOMEN: Soft, nontender. No palpable masses. Liver and spleen nonpalpable. No abdominal tenderness. GENITOURINARY: SP tube is draining clear yellow urine with some intermittent blood clots. Penile lesion, no bleeding from biopsy site. IMPRESSION: Status post biopsy of penile lesion with prior history of penile cancer. A suprapubic tube has been placed. It is draining well. There is some hematuria, but this is not unexpected. RECOMMENDATIONS: No further recommendations at this time. Further management based on pathology results. He should follow up with Dr. Doyle Sage after discharge for SP tube change and discussion of future therapy for penile lesion (path pending). Job ID: [id number] MTDD
--- NOTE | 2018-03-12 15:39 | PRG ---
DATE OF SERVICE: 03/12/2018 SERVICE: Pulmonary Medicine. INTERVAL HISTORY: The patient is doing outstanding from a respiratory standpoint. He is breathing comfortably. He has no abdominal discomfort. He is tolerating p.o. He did not have any nausea, vomiting, or diarrhea overnight. He does not have any complaints of abdominal discomfort. Otherwise, there has been no interval change to his condition. PHYSICAL EXAMINATION: VITAL SIGNS: Afebrile, pulse 87, blood pressure 161/70, respirations 17, and saturation 98% on room air. GENERAL: The patient is awake and alert, in no apparent distress. LUNGS: Excellent air entry. There is absolutely no prolonged expiratory phase or wheezing present. HEART: Normal rate and regular. ABDOMEN: Soft, nontender, and nondistended. Bowel sounds are positive. MUSCULOSKELETAL: No cyanosis or clubbing. No pitting in the bilateral lower extremities. NEUROLOGIC: Grossly nonfocal. LABORATORY DATA: WBC is 12.1, hemoglobin 11.8, and platelets 126,000. Sodium 147, potassium 3.3. Basic metabolic profile is otherwise unremarkable. All culture results remain negative to date. ASSESSMENT: 1. Pneumatosis coli without evidence of overt infectious process. 2. Impaction, resolved. 3. Severe sepsis, resolving. 4. Acute kidney injury, resolved. DISCUSSION AND PLAN: The patient is doing absolutely fantastic from respiratory standpoint. At this point, he is clearing his sepsis profile. He has no further requirements for inpatient Pulmonary Critical Care opinion, and I will sign off. Please call with additional questions or concerns moving forward. Job ID: [id number]
--- NOTE | 2018-03-12 16:18 | PRG ---
DATE OF SERVICE: 03/12/2018 Mr. Tijerina states that he feels good today. He denies any nausea or abdominal pain and has been passing gas and is hungry. His abdomen is soft and nondistended and nontender. He has normal bowel sounds. He is hemodynamically stable and alert. I think it is unlikely that he had ischemic colitis and recommended advancing his diet as tolerated. I am going to sign off. If you have any further surgical concerns, please call me. Job ID: [id number]
[2018-03-12] MEDS: Donepezil HCl 10 MG TAB PO SCH (21:43)
[2018-03-12] MEDS: Atorvastatin Calcium 20 MG TAB PO SCH (21:43)
[2018-03-13] MEDS: metroNIDAZOLE 500 MG in Premix Bag 1 BAG IVPB SCH ×4 (03:05→20:22)
[2018-03-13] MEDS: Piperacillin/Tazobactam 3.375 GM in Sodium Chloride 0.9% 100 ML IVPB SCH ×4 (04:15→23:15)
[2018-03-13] MEDS: Potassium Chloride 20 MEQ in Lactated Ringer's 1,000 ML IV SCH (05:31)
[2018-03-13 07:16] LABS: #Eosinphils 0.1 thou/uL (0.0-0.7); #Lymphocytes 1.3 thou/uL (1.20-3.40); #Monocytes 0.5 thou/uL (0.11-0.59); #Neutrophils 9.1 thou/uL (1.40-6.50); %Basophils 0.3 % (0.0-1.0); %Eosinophils 0.6 % (0.0-10.0); %Lymphocytes 11.4 % (21.0-51.0); %Monocytes 4.9 % (0.0-10.0); %Neutrophils 82.8 % (42.0-75.0); Hemoglobin 11.7 g/dL (14.0-18.0); Mean Corpuscular HGB CONC 32.7 g/dL (32.0-36.0); Mean Corpuscular Hemoglobin 33.5 pg (27.0-31.0); Mean Platelet Volume 10.3 fL (7.4-10.4); Platelet Count 125 thou/uL (130-400); RBC Distribution Width 14.1 % (11.5-14.5); Red Blood Cell (RBC) Count 3.49 mill/uL (4.70-6.10); White Blood Cell (WBC) Count 10.9 thou/uL (4.8-10.8)
[2018-03-13 07:42] LABS: Anion Gap 10 mmol/L (10-20); BUN (Urea Nitrogen) 14 mg/dL (8.4-25.7); Calc. Creatinine Clearance 59 mL/min (70-130); Calcium 7.5 mg/dL (7.8-10.44); Carbon Dioxide 23 mmol/L (23-31); Chloride 115 mmol/L (98-107); Estimated GFR-MDRD 71; Glucose 101 mg/dL (83-110); Sodium 145 mmol/L (136-145)
--- NOTE | 2018-03-13 08:21 | PDOC.FM ---
- Subjective Subjective: 86 yo gentleman with HTN, HLD, presents with constipation admitted for severe sepsis secondary to volume depletion from a diarrheal illness vs ischemic bowel , hosp day 2. Did well overnight. Tolerating liquids. Plan to advance diet as tolerated today. Has burning on his bottom due to a contact dermatitis. - Objective MAR Reviewed: Yes Vital Signs & Weight: Vital Signs (12 hours) Temp Pulse Resp BP BP Pulse Ox 03/13/18 07:15 98.1 F 84 17 158/73 H 99 03/13/18 04:00 98.7 F 85 16 148/63 H 96 Weight Admit Weight 78.744 kg Weight 78.744 kg I&O: 03/12/18 03/13/18 03/14/18 06:59 06:59 06:59 Intake Total 3239.5 1240 Output Total 1650 1250 Balance 1589.5 -10 Result Diagrams: 03/13/18 06:30 03/13/18 06:30 Phys Exam - Physical Examination Constitutional: NAD HEENT: PERRLA, moist MMs Respiratory: no wheezing, no rales, clear to auscultation bilateral Cardiovascular: RRR, no significant murmur Gastrointestinal: soft, non-tender, no distention, positive bowel sounds Musculoskeletal: no edema, pulses present Neurological: non-focal, normal sensation Psychiatric: normal affect, A&O x 3 Dx/Plan (1) Severe sepsis Code(s): A41.9 - SEPSIS, UNSPECIFIED ORGANISM; R65.20 - SEVERE SEPSIS WITHOUT SEPTIC SHOCK Status: Resolved (2) Enterocolitis Code(s): K52.9 - NONINFECTIVE GASTROENTERITIS AND COLITIS, UNSPECIFIED Status : Acute (3) Fecal impaction in rectum Code(s): K56.41 - FECAL IMPACTION Status: Resolved (4) Hypokalemia Code(s): E87.6 - HYPOKALEMIA Status: Acute (5) Lactic acid acidosis Code(s): E87.2 - ACIDOSIS Status: Resolved (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 #severe sepsis 2/2 enteritis/enterocolitis -consulted GI, recs greatly appreciated -blood cultures NGTD -transition to PO flagyl today -out of bed to chair and up with assitance today -will consult PT and CM for discharge planning #fecal impaction -resolved -improved, s/p 8 diarrheal episodes -s/p manual disinpaction, several enemas #anion gap lactic acidosis -resolved -continue fluids #hypokalemia -replaced this am -recheck bmp in am #Contact Dermatitis -kumar's butt paste followed by gold chowdary powder #KATT -resolved #Macrocytic Anemia -Vit b12 low normal, started on Vit b12 #penile lesion with urinary retention -s/p biopsy of penis lesion -hx of penile cancer vs penile lesion (noncancerous) -urology onboard; appreciate recs, recommend outpatient follow-up -suprapubic catheter placed 2/2 urinary retention/obstruction -psa normal -no signs of prostatitis, likely prostate biopsy outpatient per urology recs -flomax started -urine culture shows NGTD, will dc zosyn tomorrow after urine culture negative for 48 hours #HTN, HLD, DM -continue home medications
[2018-03-13] MEDS: Furosemide 20 MG TAB PO SCH (08:34)
[2018-03-13] MEDS: Tamsulosin HCl 0.4 MG CAP PO SCH (08:34)
[2018-03-13] MEDS: Enoxaparin Sodium 40 MG/0.4 ML SYRINGE SC SCH (08:34)
[2018-03-13] MEDS: Docusate Sodium 100 MG/10 ML UDCUP PO SCH ×2 (08:35→19:56)
[2018-03-13] MEDS ORDERED: Potassium Chloride 40 MEQ in Premix Bag 1 BAG IVPB SCH (08:45)
[2018-03-13] MEDS: Potassium Chloride 20 MEQ in Premix Bag 1 BAG IVPB SCH ×2 (10:09→12:59)
--- NOTE | 2018-03-13 11:10 | PRG ---
DATE OF SERVICE: 03/13/2018 SUBJECTIVE: Mr. Tijerina is tearful this morning. He still has a perineal rash and I have suggested that we let him sleep on Natura with a fan blowing over the perineum. We will continue antibiotics until cultures are returned negative. We will advance diet as tolerated. His abdomen looks and feels much better. Job ID: [id number]
--- NOTE | 2018-03-13 13:33 | PRG ---
DATE OF SERVICE: 03/13/2018 Mr. Tijerina is feeling fine today, but is hungry and wants real food. He states that he only got Jell-O yesterday, although I had ordered his diet to be advanced to fulls. His white count continues to slowly decline and it is 10.9 today. His hemoglobin and hematocrit are stable. His potassium is slightly low at 3, but has been replaced, and stool, urine, and blood cultures are all normal. His abdominal exam is completely benign. He has no tenderness to palpation. Bowel sounds are normal and he is soft and nondistended. I have written to advance his diet to soft foods as tolerated. From a Surgical standpoint, if he tolerates this, then he can go home. Job ID: [id number]
[2018-03-13] MEDS: Lisinopril 20 MG TAB PO SCH (14:36)
[2018-03-13] MEDS: NIFEdipine XL 60 MG TAB PO SCH (14:37)
[2018-03-13] MEDS: Donepezil HCl 10 MG TAB PO SCH (20:22)
[2018-03-13] MEDS: Atorvastatin Calcium 20 MG TAB PO SCH (20:22)
--- NOTE | 2018-03-13 22:35 | PRG ---
DATE OF SERVICE: 03/13/2018 SUBJECTIVE: Mr. Tijerina is sitting up in bed. He is eating regular meal today. bowel movement. OBJECTIVE: VITAL SIGNS: Temperature 98.1, pulse . LUNGS: Clear. ABDOMEN: Soft, nontender. Suprapubic Culp catheter intact, seen in place. LABORATORY DATA: White count 10.9, hemoglobin 11.7, platelet count 125. Sodium , potassium . ASSESSMENT AND PLAN: 1. Obstipation and fecal impaction, resolved. 2. . 3. Penile lesion, possible malignancy. Biopsy is pending. Suprapubic catheter in place. At this point in time, we will also recommend continuing maintenance laxative such as MiraLAX. We will follow up further assistance in the patient's care, please do not hesitate to contact me. Job ID: [id number]
[2018-03-14] MEDS: metroNIDAZOLE 500 MG in Premix Bag 1 BAG IVPB SCH (02:08)
[2018-03-14] MEDS: Piperacillin/Tazobactam 3.375 GM in Sodium Chloride 0.9% 100 ML IVPB SCH (04:31)
[2018-03-14] MEDS: Potassium Chloride 20 MEQ in Lactated Ringer's 1,000 ML IV SCH ×2 (04:51→23:14)
[2018-03-14 06:25] LABS: #Basophils 0.1 thou/uL (0.0-0.2); #Eosinphils 0.1 thou/uL (0.0-0.7); #Lymphocytes 1.2 thou/uL (1.20-3.40); #Monocytes 0.5 thou/uL (0.11-0.59); #Neutrophils 6.1 thou/uL (1.40-6.50); %Basophils 0.9 % (0.0-1.0); %Eosinophils 1.8 % (0.0-10.0); %Lymphocytes 14.7 % (21.0-51.0); %Monocytes 6.7 % (0.0-10.0); %Neutrophils 75.9 % (42.0-75.0); Hemoglobin 11.6 g/dL (14.0-18.0); Mean Corpuscular HGB CONC 32.3 g/dL (32.0-36.0); Mean Platelet Volume 9.6 fL (7.4-10.4); Platelet Count 110 thou/uL (130-400); RBC Distribution Width 14.1 % (11.5-14.5); Red Blood Cell (RBC) Count 3.53 mill/uL (4.70-6.10)
[2018-03-14 06:42] LABS: Anion Gap 9 mmol/L (10-20); BUN (Urea Nitrogen) 11 mg/dL (8.4-25.7); Calc. Creatinine Clearance 55 mL/min (70-130); Calcium 7.4 mg/dL (7.8-10.44); Carbon Dioxide 23 mmol/L (23-31); Chloride 117 mmol/L (98-107); Estimated GFR-MDRD 66; Glucose 97 mg/dL (83-110); Potassium 3.1 mmol/L (3.5-5.1); Sodium 146 mmol/L (136-145)
[2018-03-14] MEDS: Potassium Chloride 20 MEQ TAB PO SCH ×2 (07:51→16:36)
[2018-03-14] MEDS: Tamsulosin HCl 0.4 MG CAP PO SCH (07:52)
[2018-03-14] MEDS: metroNIDAZOLE 500 MG TAB PO SCH ×3 (07:52→20:06)
[2018-03-14] MEDS: Enoxaparin Sodium 40 MG/0.4 ML SYRINGE SC SCH (07:54)
[2018-03-14] MEDS: Docusate Sodium 100 MG/10 ML UDCUP PO SCH ×2 (07:54→20:02)
[2018-03-14] MEDS: Polyethylene Glycol 3350 17 GM Packet PO SCH (07:54)
[2018-03-14] MEDS: Furosemide 20 MG TAB PO SCH (07:54)
--- NOTE | 2018-03-14 08:47 | PDOC.FM ---
- Subjective Subjective: 86 yo gentleman with HTN, HLD, presents with constipation admitted for severe sepsis secondary to volume depletion from a diarrheal illness vs ischemic bowel , hosp day 4. Did well overnight. Pt did not tolerate solids yesterday. ADAT today. - Objective MAR Reviewed: Yes Vital Signs & Weight: Vital Signs (12 hours) Temp Pulse Resp BP Pulse Ox 03/14/18 07:36 98.2 F 84 18 155/64 H 98 03/14/18 04:00 98.8 F 87 16 135/59 L 92 L 03/14/18 00:00 98.6 F 87 16 166/65 H 93 L Weight Admit Weight 78.744 kg Weight 78.744 kg I&O: 03/13/18 03/14/18 03/15/18 06:59 06:59 06:59 Intake Total 1240 2400 Output Total 1250 400 Balance -1999 Result Diagrams: 03/14/18 06:14 03/14/18 06:14 Phys Exam - Physical Examination Constitutional: NAD HEENT: PERRLA, moist MMs Respiratory: no wheezing, no rales, no rhonchi, clear to auscultation bilateral Cardiovascular: RRR, no significant murmur Gastrointestinal: soft, non-tender, positive bowel sounds Musculoskeletal: no edema, pulses present Neurological: non-focal, normal sensation Psychiatric: normal affect, A&O x 3 Dx/Plan (1) Severe sepsis Code(s): A41.9 - SEPSIS, UNSPECIFIED ORGANISM; R65.20 - SEVERE SEPSIS WITHOUT SEPTIC SHOCK Status: Resolved (2) Enterocolitis Code(s): K52.9 - NONINFECTIVE GASTROENTERITIS AND COLITIS, UNSPECIFIED Status : Acute (3) Fecal impaction in rectum Code(s): K56.41 - FECAL IMPACTION Status: Resolved (4) Hypokalemia Code(s): E87.6 - HYPOKALEMIA Status: Acute (5) Lactic acid acidosis Code(s): E87.2 - ACIDOSIS Status: Resolved (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 Hosp day 4 #severe sepsis 2/2 enteritis/enterocolitis -consulted GI, recs greatly appreciated -blood cultures NGTD -PO flagyl today, dc zosyn IV (urine cx negative 48 hours) -out of bed to chair and up with assistance today -pt plans to go home upon discharge with suprapubic catheter, needs follow-up with urology outpatient. #fecal impaction -resolved -s/p manual disinpaction, several enemas #anion gap lactic acidosis -resolved -continue fluids #hypokalemia -replaced this am -recheck bmp in am #Contact Dermatitis -kuamr's butt paste followed by gold chowdary powder #KATT -resolved #Macrocytic Anemia -Vit b12 low normal, started on Vit b12 #penile lesion with urinary retention -s/p biopsy of penis lesion -hx of penile cancer vs penile lesion (noncancerous) -urology onboard; appreciate recs, recommend outpatient follow-up -suprapubic catheter placed 2/2 urinary retention/obstruction -psa normal -no signs of prostatitis, likely prostate biopsy outpatient per urology recs -flomax daily -urine culture shows NGTD, dc zosyn #HTN, HLD, DM -continue home medications dispo: likely dc tomorrow if tolerating solids DVT prophylaxis: lovenox CODE: FULL
--- NOTE | 2018-03-14 10:23 | PDOC.EVN ---
Event Note - Event Note Event Note: BARB: HPI: 87 yo m presents as a direct transfer from [facility] ER. Pt complains of 2 week hx of constipation. On CT at [facility] ER pt was found to have fecal impaction and colonic obstruction and was SIRS positive. There is also concern for bowel wall ischemia. Pt also complains of some associated weakness. Pt was admitted for severe sepsis 2/2 enteritis/enterocolitis. severe sepsis 2/2 enteritis/enterocolitis with fecal impaction-GI was consulted 2/2 severe fecal impaction found on CT. Pt now status post disimpaction (manual ) followed by several enemas. Fecal impaction resolved. GI recommended mirilax daily. Blood and urine cultures have been negative. Pt was initially on zosyn and flagyl IV. Zosyn was dc'd and the pt was switched to oral flagyl for a total of 10 days. He initially had an anion gap lactic acidosis which resolved with fluids. He has been hypokalemic daily and we have been supplementing daily with 40KCL. He also has ensure enlive BID. We will continue qam BMPs. He has been complaining of a rash on his rear, which is likely contact dermatitis from the large amounts and frequent diarrheal episodes, which we are treating with kumar's butt paste followed by gold chowdary powder. He initially presented with an KATT, which is now resolved. He was found to have a macrocytic anemia, with a low normal b12 level and was started on supplementation of b12. He also on admission was found to have a penile lesion with urinary retention. He is now s/p biopsy. He has a remote history of a partial penectomy, however he and the family do not know if he had penile cancer or a benign lesion. Urology has been on board and had a suprapubic catheter placed. They recommend follow-up outpatient for the results of the biopsy and in regards to the catheter. He was started on flomax here in the hospital. He also has HTN, HLD, and DM and his home medications were continued for these chronic conditions.
[2018-03-14] MEDS: NIFEdipine XL 60 MG TAB PO SCH (11:37)
[2018-03-14] MEDS: Lisinopril 20 MG TAB PO SCH (11:38)
--- NOTE | 2018-03-14 11:41 | PRG ---
DATE OF SERVICE: 03/14/2018 TYPE OF REPORT: Daily note SUBJECTIVE: Mr. Tijerina could not tolerate his regular diet yesterday and we have dropped him back to full liquids. Clinically, however, he remains much improved. He is awake and alert. As soon as he is tolerating at least a soft diet, to likely be ready for discharge. Job ID: [id number]
--- NOTE | 2018-03-14 13:39 | PDOC.GSPN ---
Surgery Progress Note: Subj - Subjective Narrative: Patient is feeling fine. There are notes stating he had crampy abdominal pain with food yesterday but he denies this. He states that he had no pain and no nausea but that his appetite is poor and he just doesn't want to eat much because he feels full. He is still passing gas and his abdomen is completely soft and nontender. I encouraged him to try to eat more, but more importantly to drink a normal amount of fluid so that he doesn't get dehydrated after discharge. I'm not sure why he is not eating but bowel ischemia is very unlikely given his lack of pain. At this point there is no evidence of a surgical process so I will sign off. Please call me if you have any questions Surgery Progress Note: Obj - Vital signs Vital signs: Vital Signs - Most Recent Temp Pulse Resp BP Pulse Ox 97.9 F 94 18 154/69 H 100 03/14/18 12:46 03/14/18 12:46 03/14/18 12:46 03/14/18 12:46 03/14/18 12:46 Surgery Progress Note: Results - Labs Result Diagrams: 03/14/18 06:14 03/14/18 06:14 Lab results: Laboratory Results - last 24 hr 03/14/18 03/14/18 06:14 06:14 WBC 8.0 RBC 3.53 L Hgb 11.6 L Hct 36.0 L MCV 102.0 H MCH 33.0 H MCHC 32.3 RDW 14.1 Plt Count 110 L MPV 9.6 Neutrophils % 75.9 H Neutrophils % (Manual) Not Reportable Lymphocytes % 14.7 L Monocytes % 6.7 Eosinophils % 1.8 Basophils % 0.9 Neutrophils # 6.1 Lymphocytes # 1.2 Monocytes # 0.5 Eosinophils # 0.1 Basophils # 0.1 Sodium 146 H Potassium 3.1 L Chloride 117 H Carbon Dioxide 23 Anion Gap 9 L BUN 11 Creatinine 1.07 Estimated GFR (MDRD) 66 Glucose 97 Calcium 7.4 L
[2018-03-14] MEDS: Donepezil HCl 10 MG TAB PO SCH (20:06)
[2018-03-14] MEDS: Atorvastatin Calcium 20 MG TAB PO SCH (20:06)
[2018-03-14] MEDS: Acetaminophen 500 MG TAB PO PRN (23:16)
--- NOTE | 2018-03-15 07:05 | PDOC.FM ---
- Subjective Subjective: No events overnight. Patient doing well and tolerating liquids. - Objective Vital Signs & Weight: Vital Signs (12 hours) Temp Pulse Resp BP Pulse Ox 03/15/18 04:00 97.2 F L 81 20 148/64 H 95 03/15/18 00:00 98.4 F 83 20 141/83 H 92 L 03/14/18 20:00 98.5 F 79 20 164/71 H 98 Weight Admit Weight 78.744 kg Weight 78.744 kg I&O: 03/14/18 03/15/18 03/16/18 06:59 06:59 06:59 Intake Total 2400 1500 Output Total 400 400 Balance 2000 1100 Result Diagrams: 03/15/18 08:33 03/15/18 08:33 Dx/Plan (1) Colitis Code(s): K52.9 - NONINFECTIVE GASTROENTERITIS AND COLITIS, UNSPECIFIED Status : Acute (2) Enterocolitis Code(s): K52.9 - NONINFECTIVE GASTROENTERITIS AND COLITIS, UNSPECIFIED Status : Acute (3) Hypokalemia Code(s): E87.6 - HYPOKALEMIA Status: Acute (4) Diabetes Code(s): E11.9 - TYPE 2 DIABETES MELLITUS WITHOUT COMPLICATIONS Status: Chronic Qualifiers: Diabetes mellitus type: type 2 (5) Hyperlipidemia Code(s): E78.5 - HYPERLIPIDEMIA, UNSPECIFIED Status: Acute (6) Hypertension Code(s): I10 - ESSENTIAL (PRIMARY) HYPERTENSION Status: Chronic - Plan Plan: 87 yo gentleman admitted for severe sepsis 2/2 enteritis/enterocolitis. Severe sepsis 2/2 enteritis/enterocolitis - consulted GI- recommend daily mirilax - recs greatly appreciated - Gen Surg consulted - no surgical needs at this time, appreciate recs - blood cultures NGTD - PO flagyl - out of bed to chair and up with assistance today - pt plans to go home upon discharge with suprapubic catheter, needs follow-up with urology outpatient. 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 Stiles I agree with the History, Examination, Assessment and Plan documented above with any addition or exceptions noted below- Patient without complaints. Tolerated soft diet yesterday. Feels much better. Denies any abdominal pain. Afebrile VSS. A/P: 1) Fecal impaction- resolved. Continue bowel regimen. 2) Enterocolitis- complete course of flagyl. 3) Penile lesion- s/p biopsy- pathology pending. 4) Urinary retention - s/p suprapubic catheter placement- continue drainage via spurapubic catheter; Follow-up with urology as outpatient. 5) Deconditioning- plan to transfer to [facility] today.
[2018-03-15 09:07] LABS: #Basophils 0.1 thou/uL (0.0-0.2); #Eosinphils 0.2 thou/uL (0.0-0.7); #Lymphocytes 1.2 thou/uL (1.20-3.40); #Monocytes 0.4 thou/uL (0.11-0.59); #Neutrophils 6.1 thou/uL (1.40-6.50); %Basophils 0.7 % (0.0-1.0); %Lymphocytes 14.9 % (21.0-51.0); %Neutrophils 76.5 % (42.0-75.0); Hemoglobin 11.8 g/dL (14.0-18.0); Mean Corpuscular HGB CONC 32.9 g/dL (32.0-36.0); Mean Corpuscular Hemoglobin 33.6 pg (27.0-31.0); Mean Platelet Volume 10.5 fL (7.4-10.4); Platelet Count 135 thou/uL (130-400); RBC Distribution Width 14.1 % (11.5-14.5); Red Blood Cell (RBC) Count 3.51 mill/uL (4.70-6.10); White Blood Cell (WBC) Count 7.9 thou/uL (4.8-10.8)
[2018-03-15 09:19] LABS: Anion Gap 9 mmol/L (10-20); BUN (Urea Nitrogen) 10 mg/dL (8.4-25.7); Calc. Creatinine Clearance 62 mL/min (70-130); Calcium 7.4 mg/dL (7.8-10.44); Carbon Dioxide 22 mmol/L (23-31); Chloride 117 mmol/L (98-107); Estimated GFR-MDRD 75; Glucose 94 mg/dL (83-110); Potassium 3.5 mmol/L (3.5-5.1); Sodium 144 mmol/L (136-145)
[2018-03-15] MEDS: Tamsulosin HCl 0.4 MG CAP PO SCH (09:30)
[2018-03-15] MEDS: Polyethylene Glycol 3350 17 GM Packet PO SCH (09:30)
[2018-03-15] MEDS: Furosemide 20 MG TAB PO SCH (09:30)
[2018-03-15] MEDS: Potassium Chloride 20 MEQ TAB PO SCH (09:30)
[2018-03-15] MEDS: Docusate Sodium 100 MG/10 ML UDCUP PO SCH (09:30)
[2018-03-15] MEDS: Enoxaparin Sodium 40 MG/0.4 ML SYRINGE SC SCH (09:31)
[2018-03-15] MEDS: metroNIDAZOLE 500 MG TAB PO SCH (09:31)
[2018-03-15 11:33] VITALS: BP 144/72; TEMP 97.3
[2018-03-15] MEDS: NIFEdipine XL 60 MG TAB PO SCH (12:40)
[2018-03-15] MEDS: Lisinopril 20 MG TAB PO SCH (12:40)
--- NOTE | 2018-03-16 08:55 | DIS ---
DATE OF ADMISSION: 03/10/2018 DATE OF DISCHARGE: 03/15/2018 RESIDENT: Cammie Stiles MD ADMITTING ATTENDING: Maria E Jarrell MD DISCHARGE ATTENDING: Maria E Jarrell MD CONSULTS: 1. Case Management. 2. Gastroenterology. 3. General Surgery. 4. Urology. 5. PT. PROCEDURES: None. PRIMARY DIAGNOSES: 1. Severe sepsis secondary to enteritis/enterocolitis with fecal impaction. 2. Anion gap lactic acidosis, resolved. 3. Hypokalemia. 4. Acute kidney injury, resolved. SECONDARY DIAGNOSES: 1. Macrocytic anemia. 2. Urinary retention. 3. Penile lesion, status post biopsy. DISCHARGE MEDICATIONS: 1. Vitamin B12 of 1000 mcg intramuscular every month. 2. Gold Anderson body powder topical as needed. 3. Flagyl 500 mg oral 3 times daily for 5 days. 4. MiraLAX 17 g oral daily. 5. Potassium chloride 40 mEq oral twice daily with meals. 6. Flomax 0.4 mg oral daily. 7. Pravastatin 80 mg oral at bedtime. 8. Furosemide 20 mg oral daily. 9. Donepezil 10 mg oral at bedtime. 10. Cilostazol 50 mg oral twice daily. 11. Procardia XL 60 mg oral at 1200 hours. 12. Lisinopril 20 mg oral at 1200 hours. Discontinued medications: None. HISTORY OF PRESENT ILLNESS/HOSPITAL COURSE: This is an 87-year-old male, who presented [place] [facility] complaining of constipation for [address] showed fecal impaction and colonic obstruction. There was also concern for bowel wall ischemia at that time. The patient also complained of associated weakness. The patient was admitted for severe sepsis secondary to enteritis/enterocolitis. GI was consulted secondary to severe fecal impaction that was found on the CT scan. The patient was manually disimpacted followed by several enemas. Fecal impaction was resolved. GI recommended daily MiraLAX. Blood and urine cultures continued to be negative. The patient was initially started on Zosyn and Flagyl IV. Zosyn was discontinued and the patient was switched to oral Flagyl for a total of 10 days. The patient initially had an anion gap lactic acidosis, which resolved with fluids. The patient has also been hypokalemic daily and has been supplemented with 40 KCl. The patient was supplemented with Ensure Enlive. The patient's potassium was normal on day of discharge. The patient was also complaining of a rash on his buttocks, which was likely due to contact dermatitis due to the large amount in frequent diarrheal episodes. This is being treated with Gold Anderson powder. The patient also had an KATT on admission, which now has resolved. The patient was also found to have a macrocytic anemia and was supplemented with a vitamin B12 due to low B12 levels. The patient was found to have a penile lesion on admission with urinary retention. A biopsy was performed. The patient has a remote history of a partial penectomy, however, he and the family did not know if he had penile cancer or benign lesion. Urology has been on board and a suprapubic catheter was placed. The patient is to follow up as outpatient with Urology for further results of the biopsy and to determine when the suprapubic catheter can be removed. The patient was started on Flomax during this hospital stay. The patient also has hypertension, hyperlipidemia, and diabetes and his home medications were continued for these chronic conditions. The patient was discharged to a swing bed in [place] and his case was checked out to Dr. Luevano. General Surgery was also consulted and stated that there was no evidence of a surgical process. The patient was encouraged to try to eat more and to drink normal amount of fluids so as to not get dehydrated after discharge. DISPOSITION: Stable. DISCHARGE INSTRUCTIONS: 1. Location: [facility] under the care of Dr. Luevano. 2. Diet: Regular. 3. Activity: Ad vi. 4. Followup: Follow up with PCP within 7 days, with Dr. Strong within 7 days. Job ID: [id number] MTDD
== END 2018-03-15 14:05 | disposition short-term general hospital (02) | DRG 854 ==
LOC: SCSER 04:28 → IMCU/EMU 06:40 → T4-A 03-11 19:28
PROVIDERS: ADMIT Family Medicine; ATTEND Family Medicine
PROC: 0VBSXZX Excision of Penis, External Approach, Diagnostic (ICD-10-PCS; principal; 2018-03-10)
PROC: 0T9B30Z Drainage of Bladder with Drainage Device, Percutaneous Approach (ICD-10-PCS; 2018-03-10)
PROC: 0D9670Z Drainage of Stomach with Drainage Device, Via Natural or Artificial Opening (ICD-10-PCS; 2018-03-10)
DX: A41.9 Sepsis, unspecified organism (principal); E87.2 Acidosis; N17.9 Acute kidney failure, unspecified; K55.9 Vascular disorder of intestine, unspecified; N40.1 Benign prostatic hyperplasia with lower urinary tract symptoms; R33.8 Other retention of urine; K56.41 Fecal impaction; F03.90 Unspecified dementia, unspecified severity, without behavioral disturbance, psychotic disturbance, mood disturbance, and anxiety; I10 Essential (primary) hypertension; E78.5 Hyperlipidemia, unspecified; G47.00 Insomnia, unspecified; K52.9 Noninfective gastroenteritis and colitis, unspecified; E87.6 Hypokalemia; N48.9 Disorder of penis, unspecified; E11.51 Type 2 diabetes mellitus with diabetic peripheral angiopathy without gangrene; R65.20 Severe sepsis without septic shock; C60.9 Malignant neoplasm of penis, unspecified; D53.9 Nutritional anemia, unspecified; Z86.73 Personal history of transient ischemic attack (TIA), and cerebral infarction without residual deficits; Z82.49 Family history of ischemic heart disease and other diseases of the circulatory system; Z80.9 Family history of malignant neoplasm, unspecified
CPT/HCPCS: 36415; 71045; 74019; 74176; 80048; 80053; 81003; 81015; 82274; 82607; 82746; 83605; 83735; 84153; 84484; 85025; 87040; 87045; 87046; 87086; 87449; 87899; 88305; 93005; 94760; 96361; 96365; 96366; 96367; 96368; 96375; G8978-GP-CK; G8979-GP-CI; J0360; J0744; J1650; J2001; J2405; J2543; J3420; J3480; J7050; J7120

== ENCOUNTER 2018-06-29 13:18 | Emergency (ER) | payer MEDICARE ==
[2018-06-29 14:59] LABS: #Eosinphils 0.2 thou/uL (0.0-0.7); #Lymphocytes 0.9 thou/uL (1.20-3.40); #Monocytes 0.6 thou/uL (0.11-0.59); #Neutrophils 3.5 thou/uL (1.40-6.50); %Basophils 0.6 % (0.0-1.0); %Lymphocytes 17.3 % (21.0-51.0); %Monocytes 11.4 % (0.0-10.0); %Neutrophils 66.7 % (42.0-75.0); Hemoglobin 9.9 g/dL (14.0-18.0); Mean Corpuscular HGB CONC 32.4 g/dL (32.0-36.0); Mean Corpuscular Hemoglobin 33.9 pg (27.0-31.0); Mean Platelet Volume 8.5 fL (7.4-10.4); Platelet Count 164 thou/uL (130-400); RBC Distribution Width 12.8 % (11.5-14.5); Red Blood Cell (RBC) Count 2.93 mill/uL (4.70-6.10); White Blood Cell (WBC) Count 5.3 thou/uL (4.8-10.8)
[2018-06-29 15:20] LABS: ALT (SGPT) 10 U/L (8-55); AST (SGOT) 15 U/L (5-34); Albumin 2.7 g/dL (3.4-4.8); Alkaline Phosphatase 124 U/L (40-150); Anion Gap 10 mmol/L (10-20); BUN (Urea Nitrogen) 19 mg/dL (8.4-25.7); Bilirubin, Total 0.5 mg/dL (0.2-1.2); Calc. Creatinine Clearance 0 mL/min (70-130); Carbon Dioxide 28 mmol/L (23-31); Chloride 106 mmol/L (98-107); Estimated GFR-MDRD 57; Glucose 158 mg/dL (83-110); Protein, Total 6.7 g/dL (5.8-8.1); Sodium 141 mmol/L (136-145)
--- NOTE | 2018-06-29 15:20 | RAD ---
ONE VIEW CHEST: COMPARISON: 03/11/2018, 05/12/2018. HISTORY: Cough. FINDINGS: Diminished lung volumes due to poor inspiratory effort. No consolidation or mass. No pleural effusi on or pneumothorax. Enlarged cardiac silhouette. Atherosclerosis of the aorta is redemonstrated. IMPRESSION: No acute cardiopulmonary process. POS: OFF
[2018-06-29 16:35] LABS: Bilirubin Negative (Negative); Blood, Urine Moderate (Negative); Clarity CLEAR (Clear); Glucose, Urine (Dipstick) Negative (Negative); Leukocyte Small (Negative); Nitrite Negative (Negative); Protein, Urine (Dipstick) 300 mg/dL (Neg-Trace); Specific Gravity, Urine 1.013 (1.002-1.036); Urobilinogen 0.2 mg/dL (0.2-1.0); pH, Urine 5.5 (5.0-9.0)
[2018-06-29 16:37] LABS: Bacteria/HPF 4+ HPF (None Seen); Hyaline Casts/LPF 4-6 HYALINE CAST LPF (0-3 Hyaline); Pathc Cast-AUWi Flag 0.13 (0-2.49); Squamous Epithelial None Seen HPF (0-3); WBC/HPF 21-50 HPF (0-3)
[2018-06-29] MEDS ORDERED: Lidocaine 1% (PF) 30 ML VIAL ONE (17:11)
[2018-06-29] MEDS ORDERED: cefTRIAXone\\ROCEPHIN 1 GM VIAL ONE (17:11)
== END 2018-06-29 17:59 | disposition home or self-care (01) ==
LOC: ERS 13:18
DX: I99.8 Other disorder of circulatory system (principal); N39.0 Urinary tract infection, site not specified; I10 Essential (primary) hypertension; G30.9 Alzheimer's disease, unspecified; F02.80 Dementia in other diseases classified elsewhere, unspecified severity, without behavioral disturbance, psychotic disturbance, mood disturbance, and anxiety; E11.9 Type 2 diabetes mellitus without complications; Z86.73 Personal history of transient ischemic attack (TIA), and cerebral infarction without residual deficits
CPT/HCPCS: 36415; 71045; 80053; 81003; 81015; 85025; 87077; 87086; 87186; 93005; 96372; J0696; J2001